=== PATIENT | male | born 1960 | race Caucasian/White ===

== ENCOUNTER 2017-07-02 16:35 | Inpatient (IN) | payer MEDICARE, MEDICAID ==
[~2017-07-02] VITALS: Ht 175.3 cm; Wt 86.2 kg
--- NOTE | 2017-07-02 16:49 | Emergency Room Report ---
History of Present Illness General Chief Complaint: Overdose Source: Patient, EMS Present Illness HPI The patient presents one half hour after taking an overdose of his antihypertensive medications in an attempt to kill himself. He is frustrated that he doesn't have more relief from his psychiatrist. He took 5 lisinopril 20 mg tablets and 6 atenolol 25 mg tablets. Complaining of chest discomfort with palpitations and feeling his heart racing. Aside from this, denies any pain. He denied pain to RN (0/10). He was last hospitalized when he tried to take his life was 2 years ago. He's been staying with a friend recently. He denies any alcohol or drugs. He has hepatitis C and denies HIV. He's been treated for depression in the past. He's been taking medication to treat this but feels it is ineffective. No fevers, cough, sore throat, NVD, rashes, joint pain, headache, dysuria. Allergies: Coded Allergies: CODEINE (Verified Adverse Reaction, Intermediate, 10/29/15) Patient History Past Medical History: see triage record Social History: Reports: smoking, Denies: alcohol use, drug use - see tox ( patient was not truthful) Social History Narrative Lives with friend Reviewed Nursing Documentation: PMH: Agreed, PSxH: Agreed Nursing Documentation-PMH Past Medical History: No History, Except For Hx Hypertension: Yes History Of Psychiatric Problem: Yes - Depression Review of Systems All Other Systems: negative except mentioned in HPI Physical Exam Vital Signs Date Time Temp Pulse Resp B/P (MAP) Pulse Ox O2 Delivery O2 Flow Rate FiO2 07/02/17 16:27 97.3 129 24 142/94 98 Room Air Sp02 EP Interpretation: reviewed, normal General Appearance: well appearing, no apparent distress, GCS 15 Head: normocephalic Eyes: bilateral eye PERRL, bilateral eye Scleral Injection ENT: moist mucus membranes Neck: supple Respiratory: lungs clear, normal breath sounds Cardiovascular #1: no edema, no murmur, tachycardia Cardiovascular #2: 2+ radial (R) Gastrointestinal: normal inspection, normal bowel sounds, non tender, no mass, non-distended, scaphoid Musculoskeletal: back normal, gait/station normal, normal range of motion Neurologic: alert, oriented x3, grossly normal Psychiatric: depressed affect, anxious Suicide Risk Assessment: Suicidal Ideation: Yes Had intent to initiate attempt: Yes Pt's plan for suicide attempt: Yes Has means to complete attempt: Yes Skin: normal inspection, warm/dry Medical Decision Making Diagnostic Impression: Primary Impression: Drug overdose Qualified Codes: T50.902A - Poisoning by unspecified drugs, medicaments and biological substances, intentional self-harm, initial encounter Additional Impressions: Suicide attempt Overdose of antihypertensive agent Qualified Codes: T46.5X2A - Poisoning by other antihypertensive drugs, intentional self-harm, initial encounter Right upper lobe pneumonia Qualified Codes: J18.1 - Lobar pneumonia, unspecified organism Renal insufficiency ER Course Patient presents with anti-hypertensive medication overdose in attempt to kill himself. DDx: suicide gesture, exacerbation of major depression, risk of hypotension, psychosis amongst others. Emergent evaluation and treatment indicated. Discussed with poison control who state needs to be observed with director of cardiac rehabilitation for at least 6 hours. Consider charcoal if suspect other agents. Recommend not to pump stomach. Patient high risk and needs 1-1 supervision. Evaluation with EKG, CXR, labs. Treatment with IV hydration and will not give charcoal. Improved with treatment. HR better. Leukocytosis and RUL infiltrate - BC and antibiotics ordered. Renal insufficiency. Tox screen + for cocaine. Dr. Elizondo contacted and will see patient. Contacted Dr. Turner for admission. Patient observed for > 6 hours (per poison control) without hypotension. Stable to be downgraded to medical floor with sitter. Laboratory Tests Test 07/02/17 16:40 07/02/17 18:35 White Blood Count 21.3 K/UL (4.8-10.8) H Red Blood Count 5.49 M/UL (4.70-6.10) Hemoglobin 16.3 G/DL (14.2-18.0) Hematocrit 49.4 % (42.0-52.0) Mean Corpuscular Volume 90 FL (80-99) Mean Corpuscular Hemoglobin 29.7 PG (27.0-31.0) Mean Corpuscular Hemoglobin Concent 33.1 G/DL (32.0-36.0) Red Cell Distribution Width 13.0 % (11.6-14.8) Platelet Count 336 K/UL (150-450) Mean Platelet Volume 6.1 FL (6.5-10.1) L Neutrophils (%) (Auto) % (45.0-75.0) Lymphocytes (%) (Auto) % (20.0-45.0) Monocytes (%) (Auto) % (1.0-10.0) Eosinophils (%) (Auto) % (0.0-3.0) Basophils (%) (Auto) % (0.0-2.0) Differential Total Cells Counted 100 Neutrophils % (Manual) 69 % (45-75) Lymphocytes % (Manual) 26 % (20-45) Monocytes % (Manual) 4 % (1-10) Eosinophils % (Manual) 1 % (0-3) Basophils % (Manual) 0 % (0-2) Band Neutrophils 0 % (0-8) Platelet Estimate Adequate Platelet Morphology Normal Red Blood Cell Morphology Normal Sodium Level 137 MMOL/L (136-145) Potassium Level 3.6 MMOL/L (3.5-5.1) Chloride Level 106 MMOL/L (98-107) Carbon Dioxide Level 17 MMOL/L (21-32) L Anion Gap 14 mmol/L (5-15) Blood Urea Nitrogen 20 mg/dL (7-18) H Creatinine 1.8 MG/DL (0.55-1.30) H Estimate Glomerular Filtration Rate 39.2 mL/min (>60) Glucose Level 172 MG/DL (74-106) H Lactic Acid Level 1.40 mmol/L (0.66-2.22) Calcium Level 9.5 MG/DL (8.5-10.1) Total Bilirubin 0.6 MG/DL (0.2-1.0) Aspartate Amino Transferase (AST) 30 U/L (15-37) Alanine Aminotransferase (ALT) 36 U/L (12-78) Alkaline Phosphatase 81 U/L (46-116) Total Creatine Kinase 105 U/L (26-308) Troponin I 0.013 ng/mL (0.000-0.056) Total Protein 8.3 G/DL (6.4-8.2) H Albumin 4.2 G/DL (3.4-5.0) Globulin 4.1 g/dL Albumin/Globulin Ratio 1.0 (1.0-2.7) Thyroid Stimulating Hormone (TSH) 2.981 uiU/mL (0.360-3.740) Salicylates Level 3.9 ug/mL (2.8-20) Acetaminophen Level < 10 MCG/ML (10-30) L Serum Alcohol < 3 mg/dL Urine Color Yellow Urine Appearance Clear Urine pH 5 (4.5-8.0) Urine Specific [place] 1.010 (1.005-1.035) Urine Protein Negative (NEGATIVE) Urine Glucose (UA) Negative (NEGATIVE) Urine Ketones Negative (NEGATIVE) Urine Occult Blood Negative (NEGATIVE) Urine Nitrite Negative (NEGATIVE) Urine Bilirubin Negative (NEGATIVE) Urine Urobilinogen 1 MG/DL (0.0-1.0) H Urine Leukocyte Esterase Negative (NEGATIVE) Urine Opiates Screen Negative (NEGATIVE) Urine Barbiturates Screen Negative (NEGATIVE) Phencyclidine (PCP) Screen Negative (NEGATIVE) Urine Amphetamines Screen Positive (NEGATIVE) H Urine Benzodiazepines Screen Negative (NEGATIVE) Urine Cocaine Screen Positive (NEGATIVE) H Urine Marijuana (THC) Screen Positive (NEGATIVE) H EKG Diagnostic Results Rate: tachycardiac ST Segments: no acute changes Rhythm Strip Diag. Results EP Interpretation: yes Rhythm: no PVC's, no ectopy, other - ST Chest X-Ray Diagnostic Results Chest X-Ray Diagnostic Results : Chest X-Ray Ordered: Yes # of Views/Limited/Complete: 1 View Indication: Other EP Interpretation: Yes Interpretation: no effusion, no pneumothorax, other - RUL infiltrate Impression: Other Electronically Signed by: Aaron España MD Last Vital Signs Date Time Temp Pulse Resp B/P (MAP) Pulse Ox O2 Delivery O2 Flow Rate FiO2 07/03/17 00:45 98.0 99 14 126/75 100 Room Air Status: improved Disposition: ADMITTED INPATIENT Condition: Serious Scripts Cefdinir (CEFDINIR) 300 Mg Capsule 300 MG PO BID for 5 Days, #10 CAP Prov: Marito Luther M.D. 07/04/17 Azithromycin (AZITHROMYCIN) 500 Mg Tablet 500 MG ORAL DAILY for 3 Days, #3 TAB Prov: Marito Luther M.D. 07/04/17 Aaron España M.D. Jul 02, 2017 16:49
[2017-07-02 17:26] VITALS: BP 132/85
[2017-07-02 17:26] LABS: HEMATOCRIT 49.4 % (42.0-52.0); HEMOGLOBIN 16.3 G/DL (14.2-18.0); MEAN CORPUSCULAR VOLUME 90 FL (80-99); PLATELET COUNT 336 K/UL (150-450); RED BLOOD COUNT 5.49 M/UL (4.70-6.10); WHITE BLOOD COUNT 21.3 K/UL (4.8-10.8)
[2017-07-02 17:31] LABS: ALANINE AMINOTRANSFERASE 36 U/L (12-78); ALBUMIN 4.2 G/DL (3.4-5.0); ALKALINE PHOSPHATASE 81 U/L (46-116); ANION GAP 14 mmol/L (5-15); ASPARTATE AMINO TRANSFERASE 30 U/L (15-37); BILIRUBIN,TOTAL 0.6 MG/DL (0.2-1.0); BLOOD UREA NITROGEN 20 mg/dL (7-18); CALCIUM 9.5 MG/DL (8.5-10.1); CARBON DIOXIDE 17 MMOL/L (21-32); CHLORIDE 106 MMOL/L (98-107); CREATININE 1.8 MG/DL (0.55-1.30); POTASSIUM 3.6 MMOL/L (3.5-5.1); SODIUM 137 MMOL/L (136-145)
[2017-07-02 17:41] LABS: CREATINE KINASE 105 U/L (26-308)
[2017-07-02] MEDS ORDERED: Cefepime HCl 1 GM in D5W 55 ML IVPB ONE (18:15)
[2017-07-02] MEDS ORDERED: Cefepime 1gm vial ONE (18:16)
[2017-07-02 19:06] LABS: APPEARANCE,URINE CLEAR; BILIRUBIN, URINE NEGATIVE (NEGATIVE); GLUCOSE, URINE (UA) NEGATIVE (NEGATIVE); KETONES,URINE NEGATIVE (NEGATIVE); LEUKOCYTE ESTERASE ,URINE NEGATIVE (NEGATIVE); NITRITE,URINE NEGATIVE (NEGATIVE); PH,URINE 5 (4.5-8.0); PROTEIN,URINE NEGATIVE (NEGATIVE); UROBILINOGEN,URINE 1 MG/DL (0.0-1.0)
[2017-07-02 19:15] LABS: COLOR,URINE YELLOW
[2017-07-02 19:20] VITALS: BP 126/80
[2017-07-02] MEDS ORDERED: FENOFIBRATE54 MG ORAL (20:05)
[2017-07-02] MEDS ORDERED: LISINOPRIL20 MG ORAL (20:05)
[2017-07-02] MEDS ORDERED: CHLORPROMAZINE50 MG PO (20:05)
[2017-07-02] MEDS ORDERED: TERAZOSIN HCL1 MG ORAL (20:05)
[2017-07-02] MEDS ORDERED: RISPERIDONE3 MG ORAL (20:05)
[2017-07-02] MEDS ORDERED: KENALOG 0.025%15 GM TOPIC (20:05)
[2017-07-02] MEDS ORDERED: METOPROLOL TART25 MG ORAL (20:05)
[2017-07-02] MEDS ORDERED: DEXILANT30 MG ORAL (20:05)
[2017-07-02] MEDS ORDERED: RISPERDAL2 MG ORAL (20:05)
[2017-07-02] MEDS ORDERED: CLOPIDOGREL75 MG ORAL (20:05)
[2017-07-02] MEDS ORDERED: TOPIRAMATE100 MG ORAL (20:05)
[2017-07-02] MEDS ORDERED: ASPIR 8181 MG ORAL (20:05)
[2017-07-02] MEDS ORDERED: ATORVASTATIN CA80 MG ORAL (20:05)
[2017-07-02] MEDS ORDERED: HYDROXYZINE HCL50 M1 PO (20:05)
[2017-07-02] MEDS ORDERED: SERTRALINE HCL100 MG PO (20:05)
[2017-07-02] MEDS ORDERED: RISPERIDONE4 MG ORAL (20:05)
[2017-07-02] MEDS ORDERED: HYTRIN2 MG PO (20:05)
[2017-07-02 20:25] VITALS: BP 126/82
[2017-07-02 21:25] VITALS: BP 124/78
[2017-07-02 23:00] VITALS: BP 120/74
[2017-07-03] VITALS (7 sets, daily range): BP systolic 126–147; BP diastolic 75–97
[2017-07-03] MEDS: Aspirin Baby 81mg ORAL SCH (08:07)
[2017-07-03 09:46] LABS: BASOPHILS % (AUTO) 0.6 % (0.0-2.0); HEMATOCRIT 41.9 % (42.0-52.0); HEMOGLOBIN 13.7 G/DL (14.2-18.0); LYMPHOCYTES % (AUTO) 42.5 % (20.0-45.0); MEAN CORPUSCULAR VOLUME 91 FL (80-99); MONOCYTES % (AUTO) 5.3 % (1.0-10.0); NEUTROPHILS % (AUTO) 48.6 % (45.0-75.0); PLATELET COUNT 253 K/UL (150-450); RED BLOOD COUNT 4.62 M/UL (4.70-6.10); RED CELL DISTRIBUTION WIDTH 12.7 % (11.6-14.8)
[2017-07-03 09:48] LABS: ANION GAP 11 mmol/L (5-15); BLOOD UREA NITROGEN 18 mg/dL (7-18); CALCIUM 8.9 MG/DL (8.5-10.1); CARBON DIOXIDE 21 MMOL/L (21-32); CHLORIDE 112 MMOL/L (98-107); CREATININE 1.2 MG/DL (0.55-1.30); POTASSIUM 3.6 MMOL/L (3.5-5.1); SODIUM 143 MMOL/L (136-145)
--- NOTE | 2017-07-03 11:09 | Diagnostic Imaging Report ---
Indication: Cough Technique: CHEST 1 VIEW Comparison: None. Findings: The heart is enlarged. The lungs are clear. No pleural fluid. The bones are unremarkable. The patient has taken a poor inspiration. Impression: Cardiomegaly. Otherwise normal.
--- NOTE | 2017-07-03 11:41 | History and Physical ---
History of Present Illness General Date patient seen: Jul 03, 2017 Reason for Hospitalization: Overdose Present Illness HPI 57 year old male w/ PMHx of CAD s/p prior cardiac stents on DAPT, HTN, HLD, GERD , Depression w/ prior SI & attempts and Schizophrenia. Pt states he has been more depressed lately and has been having more auditory hallucinations. He took an overdose of his BP medication (ACEi & BB) and presented to the ED hypotensive and tachycardic. Pt received IVF w/ improvement in hemodynamics. He was placed on a 5150 hold and Psychiatry was notified. Pt did not require any interventions for BB overdose. He has remained HDS overnight with a 1:1 sitter. In the ED pt was also noted to have a productive cough w/ PNA identified on CXR. He was started on cefepime and levofloxacin in the ED. Pt reports he has had a productive cough for the last 2 months and has had fever and chills over the last week. Currently he is living [address] Allergies: Coded Allergies: CODEINE (Verified Adverse Reaction, Intermediate, 10/29/15) Medication History Scheduled Aspirin* (Aspir 81*), 81 MG ORAL DAILY, (Reported) Atorvastatin Calcium* (Lipitor*), 80 MG ORAL BEDTIME, (Reported) Chlorpromazine Hcl (Chlorpromazine Hcl), 50 MG PO DAILY, (Reported) Chlorpromazine Hcl (Chlorpromazine Hcl), 100 MG PO DAILY, (Reported) Clopidogrel* (Clopidogrel*), 75 MG ORAL DAILY, (Reported) Dexlansoprazole (Dexilant), 30 MG ORAL DAILY, (Reported) Fenofibrate (Fenofibrate), 54 MG ORAL DAILY, (Reported) Hydroxyzine Hcl (Hydroxyzine Hcl), 50 MG PO QID, (Reported) Lisinopril (Lisinopril*), 20 MG ORAL DAILY, (Reported) Metoprolol Tartrate* (Metoprolol Tartrate*), 25 MG ORAL EVERY 12 HOURS, ( Reported) Risperidone (Risperidone), 3 MG ORAL BID, (Reported) Risperidone (Risperidone), 4 MG ORAL BID, (Reported) Risperidone* (Risperdal*), 2 MG ORAL BID, (Reported) Sertraline Hcl* (Zoloft*), 100 MG PO BID, (Reported) Terazosin HCl (Terazosin HCl), 2 MG PO QHS, (Reported) Terazosin Hcl* (Hytrin*), 1 MG ORAL BEDTIME, (Reported) Topiramate* (Topamax*), 100 MG ORAL BEDTIME, (Reported) Triamcinolone Acet (Triamcinolone Acetonide), 15 GM TOPIC BID, (Reported) Patient History History Provided By: Patient, Medical Record Healthcare decision maker Resuscitation status Full Code Advanced Directive on File Social History Social History: (1) Homeless Review of Systems ROS Narrative CONSTITUTIONAL: + fever, chills, weakness or fatigue. HEENT: Eyes: No visual loss, blurred vision, double vision or yellow sclerae. Ears, Nose, Throat: No hearing loss, sneezing, congestion, runny nose or sore throat. SKIN: No rash or itching. CARDIOVASCULAR: No chest pain, chest pressure or chest discomfort. No palpitations or edema. RESPIRATORY: + shortness of breath, cough & sputum. GASTROINTESTINAL: No anorexia, nausea, vomiting or diarrhea. No abdominal pain or blood. NEUROLOGICAL: No headache, dizziness, syncope, paralysis, ataxia, numbness or tingling in the extremities. No change in bowel or bladder control. MUSCULOSKELETAL: No muscle, back pain. No joint pain or stiffness. HEMATOLOGIC: No anemia, bleeding or bruising. LYMPHATICS: No enlarged nodes. No history of splenectomy. PSYCHIATRIC: + depression w/ SI and plan ENDOCRINOLOGIC: No reports of sweating, cold or heat intolerance. No polyuria or polydipsia. ALLERGIES: No history of asthma, hives, eczema or rhinitis. Physical Exam Physical Exam Narrative General: Ill appearing, in no acute distress, cooperative and alert, flat affect Head: Normocephalic, without obvious abnormality, atraumatic. Eyes: Conjunctivae/corneas clear. PERRL, EOMs intact. No scleral icterus present Throat: Lips, mucosa, and tongue normal. Teeth and gums normal. Neck: No carotid bruits bilaterally, no jugular venous distention, no hepatojugular reflux, supple, symmetrical, trachea midline Lungs: Clear to auscultation bilaterally. + Diffuse rhonchi in post soliz Chest wall: No tenderness or deformity. Heart: Regular rate and rhythm, normal S1 and S2, No murmurs/gallops/rubs Abdomen: Soft, non-tender, non-distended, normoactive bowel sounds. No masses, or hepatosplenomegaly. Extremities: No clubbing, cyanosis, edema Pulses: 2+ and symmetric all extremities. Skin: No rashes, excoriations Neurologic: CNII-XII intact. Normal strength and sensation throughout. Last 24 Hour Vital Signs Date Time Temp Pulse Resp B/P (MAP) Pulse Ox O2 Delivery O2 Flow Rate FiO2 07/03/17 08:00 98.2 88 18 147/94 96 Room Air 07/03/17 07:42 98.2 88 18 147/94 96 Room Air 07/03/17 04:00 98.1 78 18 144/97 97 Room Air 07/03/17 00:45 98.0 99 14 126/75 100 Room Air 07/03/17 00:05 98.0 99 14 126/75 100 Room Air 07/02/17 23:00 98.2 102 13 120/74 99 Room Air 07/02/17 21:25 98.1 84 14 124/78 100 Room Air 07/02/17 20:25 97.8 88 14 126/82 99 Room Air 07/02/17 19:20 97.9 90 16 126/80 99 Room Air 07/02/17 17:26 105 14 132/85 98 Room Air 07/02/17 16:37 129 24 Room Air 07/02/17 16:27 97.3 129 24 142/94 98 Room Air Laboratory Tests Test 07/02/17 16:40 07/02/17 18:35 07/03/17 08:45 White Blood Count 21.3 K/UL (4.8-10.8) H 9.0 K/UL (4.8-10.8) # Red Blood Count 5.49 M/UL (4.70-6.10) 4.62 M/UL (4.70-6.10) L Hemoglobin 16.3 G/DL (14.2-18.0) 13.7 G/DL (14.2-18.0) L Hematocrit 49.4 % (42.0-52.0) 41.9 % (42.0-52.0) L Mean Corpuscular Volume 90 FL (80-99) 91 FL (80-99) Mean Corpuscular Hemoglobin 29.7 PG (27.0-31.0) 29.7 PG (27.0-31.0) Mean Corpuscular Hemoglobin Concent 33.1 G/DL (32.0-36.0) 32.8 G/DL (32.0-36.0) Red Cell Distribution Width 13.0 % (11.6-14.8) 12.7 % (11.6-14.8) Platelet Count 336 K/UL (150-450) 253 K/UL (150-450) Mean Platelet Volume 6.1 FL (6.5-10.1) L 5.9 FL (6.5-10.1) L Neutrophils (%) (Auto) % (45.0-75.0) 48.6 % (45.0-75.0) Lymphocytes (%) (Auto) % (20.0-45.0) 42.5 % (20.0-45.0) Monocytes (%) (Auto) % (1.0-10.0) 5.3 % (1.0-10.0) Eosinophils (%) (Auto) % (0.0-3.0) 3.0 % (0.0-3.0) Basophils (%) (Auto) % (0.0-2.0) 0.6 % (0.0-2.0) Differential Total Cells Counted 100 Neutrophils % (Manual) 69 % (45-75) Lymphocytes % (Manual) 26 % (20-45) Monocytes % (Manual) 4 % (1-10) Eosinophils % (Manual) 1 % (0-3) Basophils % (Manual) 0 % (0-2) Band Neutrophils 0 % (0-8) Platelet Estimate Adequate Platelet Morphology Normal Red Blood Cell Morphology Normal Sodium Level 137 MMOL/L (136-145) 143 MMOL/L (136-145) Potassium Level 3.6 MMOL/L (3.5-5.1) 3.6 MMOL/L (3.5-5.1) Chloride Level 106 MMOL/L (98-107) 112 MMOL/L (98-107) H Carbon Dioxide Level 17 MMOL/L (21-32) L 21 MMOL/L (21-32) Anion Gap 14 mmol/L (5-15) 11 mmol/L (5-15) Blood Urea Nitrogen 20 mg/dL (7-18) H 18 mg/dL (7-18) Creatinine 1.8 MG/DL (0.55-1.30) H 1.2 MG/DL (0.55-1.30) Estimat Glomerular Filtration Rate 39.2 mL/min (>60) > 60 mL/min (>60) Glucose Level 172 MG/DL (74-106) H 97 MG/DL (74-106) Lactic Acid Level 1.40 mmol/L (0.66-2.22) Calcium Level 9.5 MG/DL (8.5-10.1) 8.9 MG/DL (8.5-10.1) Total Bilirubin 0.6 MG/DL (0.2-1.0) Aspartate Amino Transf (AST/SGOT) 30 U/L (15-37) Alanine Aminotransferase (ALT/SGPT) 36 U/L (12-78) Alkaline Phosphatase 81 U/L (46-116) Total Creatine Kinase 105 U/L (26-308) Troponin I 0.013 ng/mL (0.000-0.056) Total Protein 8.3 G/DL (6.4-8.2) H Albumin 4.2 G/DL (3.4-5.0) Globulin 4.1 g/dL Albumin/Globulin Ratio 1.0 (1.0-2.7) Thyroid Stimulating Hormone (TSH) 2.981 uiU/mL (0.360-3.740) Salicylates Level 3.9 ug/mL (2.8-20) Acetaminophen Level < 10 MCG/ML (10-30) L Serum Alcohol < 3 mg/dL Urine Color Yellow Urine Appearance Clear Urine pH 5 (4.5-8.0) Urine Specific [place] 1.010 (1.005-1.035) Urine Protein Negative (NEGATIVE) Urine Glucose (UA) Negative (NEGATIVE) Urine Ketones Negative (NEGATIVE) Urine Occult Blood Negative (NEGATIVE) Urine Nitrite Negative (NEGATIVE) Urine Bilirubin Negative (NEGATIVE) Urine Urobilinogen 1 MG/DL (0.0-1.0) H Urine Leukocyte Esterase Negative (NEGATIVE) Urine Opiates Screen Negative (NEGATIVE) Urine Barbiturates Screen Negative (NEGATIVE) Phencyclidine (PCP) Screen Negative (NEGATIVE) Urine Amphetamines Screen Positive (NEGATIVE) H Urine Benzodiazepines Screen Negative (NEGATIVE) Urine Cocaine Screen Positive (NEGATIVE) H Urine Marijuana (THC) Screen Positive (NEGATIVE) H Height (Feet): 5 Height (Inches): 9.00 Weight (Pounds): 190 Medications Current Medications Medications (Trade) Dose Ordered Sig/Mauricio Route PRN Reason Start Time Stop Time Status Last Admin Dose Admin Aspirin (ASA) 81 mg DAILY ORAL 07/03/17 09:00 08/02/17 08:59 07/03/17 08:07 Clopidogrel Bisulfate (Plavix) 75 mg DAILY ORAL 07/03/17 09:00 08/02/17 08:59 07/03/17 08:07 Assessment/Plan Status: stable Assessment/Plan Depression w/ suicide attempt Suicidal ideation - active Drug Overdose Schizophrenia Pneumonia Renal insufficiency Poly substance abuse (amphetamine, cocaine, MJ pos drug screen) CAD s/p prior Stents on DAPT HTN HLD GERD - admit to in pt - 5150 hold - 1:1 Sitter - psychiatry consulted by ED, awaiting recs - transfer to psych facility given active SI once medically stable - narrow abx to ceftriaxone and azithromycin, monitor clinical response - sputum culture - trend Chem and CBC - renal us & FENA - c/w asa & plavix - re start home MTP in am - hold lisinopril given real fxn - avoid nephro toxic meds - c/w other home psych meds - awaiting psych recs for imput on psych regimen - dispo planning DVT PPx: Heparin sq FULL CODE Dispo: psych facility once medically stable Expected LOS: 2-3 days Time of note may not reflect time of clinical encounter I spent 69 min on this case and 27 min were dedicated to counseling and care coordination Jason Turner MD Jul 03, 2017 11:41
[2017-07-03] MEDS: D5 1/2NS 1,000 ML IV SCH (15:36)
[2017-07-03] MEDS ORDERED: Potassium Chloride 10 MEQ in D5 1/2NS 1,000 ML IV SCH (16:00)
[2017-07-03] MEDS: Sertraline 100mg tab ORAL SCH (17:54)
[2017-07-03] MEDS ORDERED: Azithromycin 500 MG in D5W 275 ML IV SCH (20:00)
[2017-07-03] MEDS: Metoprolol 25mg tab ORAL SCH (20:54)
[2017-07-03] MEDS ORDERED: cefTRIAXone 1gm/D5W 55ml IVPB SCH ×2 (21:00)
[2017-07-03] MEDS ORDERED: Terazosin 2mg cap ORAL SCH (21:00)
[2017-07-03] MEDS ORDERED: Atorvastatin 80mg tab ORAL SCH (21:00)
[2017-07-03] MEDS ORDERED: Topiramate 100mg tab ORAL SCH (21:00)
[2017-07-04] MEDS: D5 1/2NS 1,000 ML IV SCH (03:34)
[2017-07-04 07:56] LABS: BASOPHILS % (AUTO) 0.5 % (0.0-2.0); EOSINOPHILS % (AUTO) 1.7 % (0.0-3.0); HEMATOCRIT 37.8 % (42.0-52.0); HEMOGLOBIN 13.3 G/DL (14.2-18.0); LYMPHOCYTES % (AUTO) 31.3 % (20.0-45.0); MEAN CORPUSCULAR VOLUME 90 FL (80-99); MONOCYTES % (AUTO) 5.1 % (1.0-10.0); NEUTROPHILS % (AUTO) 61.5 % (45.0-75.0); PLATELET COUNT 244 K/UL (150-450); RED BLOOD COUNT 4.21 M/UL (4.70-6.10); RED CELL DISTRIBUTION WIDTH 12.4 % (11.6-14.8); WHITE BLOOD COUNT 13.1 K/UL (4.8-10.8)
[2017-07-04 08:00] VITALS: BP 135/90
[2017-07-04] MEDS: Aspirin Baby 81mg ORAL SCH (08:29)
[2017-07-04] MEDS: Metoprolol 25mg tab ORAL SCH (08:29)
[2017-07-04] MEDS: Sertraline 100mg tab ORAL SCH ×2 (08:29→17:02)
[2017-07-04 08:53] LABS: ANION GAP 13 mmol/L (5-15); BLOOD UREA NITROGEN 19 mg/dL (7-18); CALCIUM 8.6 MG/DL (8.5-10.1); CARBON DIOXIDE 17 MMOL/L (21-32); CHLORIDE 111 MMOL/L (98-107); CREATININE 1.1 MG/DL (0.55-1.30); POTASSIUM 3.4 MMOL/L (3.5-5.1); SODIUM 141 MMOL/L (136-145)
[2017-07-04] MEDS ORDERED: Lisinopril 20mg tab ORAL SCH (09:00)
[2017-07-04 11:40] VITALS: BP 135/95
--- NOTE | 2017-07-04 14:29 | Diagnostic Imaging Report ---
Indication:Elevated Bun and Creatinine. Technique: Grayscale and duplex Doppler imaging of the kidneys performed. Comparison: None Findings: The urinary bladder is markedly distended. There is left hydronephrosis. Further evaluation is recommended. IVC is unremarkable in appearance. The right kidney is 14.8 CM. Left kidney is 12.4 CM. Impression: Left hydronephrosis. Further evaluation is recommended.
--- NOTE | 2017-07-04 15:19 | General Progress Note ---
Subjective Date patient seen: Jul 04, 2017 Time patient seen: 15:19 Allergies: Coded Allergies: CODEINE (Verified Adverse Reaction, Intermediate, 10/29/15) Objective Last 24 Hour Vital Signs Date Time Temp Pulse Resp B/P (MAP) Pulse Ox O2 Delivery O2 Flow Rate FiO2 07/04/17 11:40 97.8 88 18 135/95 96 Room Air 07/04/17 08:32 135/90 07/04/17 08:29 84 135/90 07/04/17 08:00 98.8 84 18 135/90 98 Room Air 07/03/17 20:54 97 139/92 07/03/17 20:00 97.0 97 18 139/92 96 Room Air 07/03/17 16:00 98.1 92 19 146/95 96 Room Air Intake and Output 07/04/17 07/05/17 19:00 07:00 Intake Total 525 ml Output Total 1 ml Balance 524 ml IV Total 525 ml Output Urine Total 1 ml Laboratory Tests 07/03/17 19:17: Urine Random Sodium 175H, Urine Creatinine 132.5H 07/04/17 05:30: White Blood Count 13.1H, Red Blood Count 4.21L, Hemoglobin 13.3L, Hematocrit 37.8L, Mean Corpuscular Volume 90, Mean Corpuscular Hemoglobin 31.5H, Mean Corpuscular Hemoglobin Concent 35.1, Red Cell Distribution Width 12.4, Platelet Count 244, Mean Platelet Volume 5.9L, Neutrophils (%) (Auto) 61.5, Lymphocytes ( %) (Auto) 31.3, Monocytes (%) (Auto) 5.1, Eosinophils (%) (Auto) 1.7, Basophils (%) (Auto) 0.5, Sodium Level 141, Potassium Level 3.4L, Chloride Level 111H, Carbon Dioxide Level 17L, Anion Gap 13, Blood Urea Nitrogen 19H, Creatinine 1.1 , Estimat Glomerular Filtration Rate > 60, Glucose Level 107H, Calcium Level 8.6 Height (Feet): 5 Height (Inches): 9.00 Weight (Pounds): 190 Marito Luther M.D. Jul 04, 2017 15:19
[2017-07-04] MEDS ORDERED: Tubing IV Secondary IV ONE (15:47)
[2017-07-04] MEDS ORDERED: D5 1/2NS 1000ml IV ONE (15:47)
[2017-07-04 16:00] VITALS: BP 116/77
[2017-07-04] MEDS ORDERED: AZITHROMYCIN500 MG ORAL (16:18)
[2017-07-04] MEDS ORDERED: CEFDINIR300 MG PO (16:23)
--- NOTE | 2017-07-04 20:20 | Cardiology Report ---
APPROVED REPORT EKG Measurement Heart [id number] [place] 150P60 [id number] Sinus tachycardia Otherwise normal ECG
--- NOTE | 2017-07-04 20:20 | Cardiology Report ---
APPROVED REPORT EKG Measurement Heart [id number] CT 150P60 [id number] Sinus tachycardia Otherwise normal ECG
--- NOTE | 2017-07-04 20:20 | Cardiology Report ---
APPROVED REPORT EKG Measurement Heart [id number] [place] 150P60 [id number] Sinus tachycardia Otherwise normal ECG
--- NOTE | 2017-07-04 23:57 | General Progress Note ---
Assessment/Plan Status: unchanged Assessment/Plan schizophrenia mdd drug use -transfer to psych -vol -imminent dts Subjective Date patient seen: Jul 03, 2017 Neurologic/Psychiatric: Reports: anxiety, depressed, emotional problems Allergies: Coded Allergies: CODEINE (Verified Adverse Reaction, Intermediate, 10/29/15) Objective Last 24 Hour Vital Signs Date Time Temp Pulse Resp B/P (MAP) Pulse Ox O2 Delivery O2 Flow Rate FiO2 07/04/17 16:00 97.5 71 18 116/77 97 Room Air 07/04/17 11:40 97.8 88 18 135/95 96 Room Air 07/04/17 08:32 135/90 07/04/17 08:29 84 135/90 07/04/17 08:00 98.8 84 18 135/90 98 Room Air Intake and Output 07/04/17 07/05/17 19:00 07:00 Intake Total 525 ml Output Total 1 ml Balance 524 ml IV Total 525 ml Output Urine Total 1 ml # Voids 2 Laboratory Tests 07/04/17 05:30: White Blood Count 13.1H, Red Blood Count 4.21L, Hemoglobin 13.3L, Hematocrit 37.8L, Mean Corpuscular Volume 90, Mean Corpuscular Hemoglobin 31.5H, Mean Corpuscular Hemoglobin Concent 35.1, Red Cell Distribution Width 12.4, Platelet Count 244, Mean Platelet Volume 5.9L, Neutrophils (%) (Auto) 61.5, Lymphocytes ( %) (Auto) 31.3, Monocytes (%) (Auto) 5.1, Eosinophils (%) (Auto) 1.7, Basophils (%) (Auto) 0.5, Sodium Level 141, Potassium Level 3.4L, Chloride Level 111H, Carbon Dioxide Level 17L, Anion Gap 13, Blood Urea Nitrogen 19H, Creatinine 1.1 , Estimat Glomerular Filtration Rate > 60, Glucose Level 107H, Calcium Level 8.6 Height (Feet): 5 Height (Inches): 9.00 Weight (Pounds): 190 General Appearance: no apparent distress, alert Neurologic: alert, oriented x 3, responsive, depressed affect Katlin Elizondo M.D. Jul 04, 2017 23:57
--- NOTE | 2017-07-04 23:59 | Consultation ---
History of Present Illness General Date patient seen: Jul 02, 2017 Chief Complaint: Overdose Present Illness HPI 57 year old male w/ PMHx of CAD s/p prior cardiac stents on DAPT, HTN, HLD, GERD , Depression w/ prior SI & attempts and Schizophrenia. Pt states he has been more depressed lately and has been having more auditory hallucinations. He took an overdose of his BP medication (ACEi & BB) and presented to the ED hypotensive and tachycardic. the pt is suicidal and has plan to end his life. Allergies: Coded Allergies: CODEINE (Verified Adverse Reaction, Intermediate, 10/29/15) Medication History Scheduled Aspirin* (Aspir 81*), 81 MG ORAL DAILY, (Reported) Atorvastatin Calcium* (Lipitor*), 80 MG ORAL BEDTIME, (Reported) Azithromycin (Azithromycin), 500 MG ORAL DAILY Cefdinir (Cefdinir), 300 MG PO BID Chlorpromazine Hcl (Chlorpromazine Hcl), 50 MG PO DAILY, (Reported) Chlorpromazine Hcl (Chlorpromazine Hcl), 100 MG PO DAILY, (Reported) Clopidogrel* (Clopidogrel*), 75 MG ORAL DAILY, (Reported) Dexlansoprazole (Dexilant), 30 MG ORAL DAILY, (Reported) Fenofibrate (Fenofibrate), 54 MG ORAL DAILY, (Reported) Hydroxyzine Hcl (Hydroxyzine Hcl), 50 MG PO QID, (Reported) Lisinopril (Lisinopril*), 20 MG ORAL DAILY, (Reported) Metoprolol Tartrate* (Metoprolol Tartrate*), 25 MG ORAL EVERY 12 HOURS, ( Reported) Risperidone* (Risperdal*), 2 MG ORAL BID, (Reported) Sertraline Hcl* (Zoloft*), 100 MG PO BID, (Reported) Terazosin HCl (Terazosin HCl), 2 MG PO QHS, (Reported) Topiramate* (Topamax*), 100 MG ORAL BEDTIME, (Reported) Triamcinolone Acet (Triamcinolone Acetonide), 15 GM TOPIC BID, (Reported) Discontinued Medications Risperidone (Risperidone), 3 MG ORAL BID, (Reported) Discontinued Reason: Medication dose changed Risperidone (Risperidone), 4 MG ORAL BID, (Reported) Discontinued Reason: Medication dose changed Terazosin Hcl* (Hytrin*), 1 MG ORAL BEDTIME, (Reported) Discontinued Reason: Medication dose changed Patient History History Provided By: Patient, Medical Record, PMD Healthcare decision maker Resuscitation status Full Code Advanced Directive on File Review of Systems Psychiatric: Reports: prior hx, anxiety, depressed feelings, emotional problems , SI, hallucinations Physical Exam General Appearance: no apparent distress, alert, thin Neurologic: alert, oriented x 3, responsive, depressed affect Last 24 Hour Vital Signs Date Time Temp Pulse Resp B/P (MAP) Pulse Ox O2 Delivery O2 Flow Rate FiO2 07/04/17 16:00 97.5 71 18 116/77 97 Room Air 07/04/17 11:40 97.8 88 18 135/95 96 Room Air 07/04/17 08:32 135/90 07/04/17 08:29 84 135/90 07/04/17 08:00 98.8 84 18 135/90 98 Room Air Intake and Output 07/04/17 07/05/17 19:00 07:00 Intake Total 525 ml Output Total 1 ml Balance 524 ml IV Total 525 ml Output Urine Total 1 ml # Voids 2 Laboratory Tests Test 07/04/17 05:30 White Blood Count 13.1 K/UL (4.8-10.8) H Red Blood Count 4.21 M/UL (4.70-6.10) L Hemoglobin 13.3 G/DL (14.2-18.0) L Hematocrit 37.8 % (42.0-52.0) L Mean Corpuscular Volume 90 FL (80-99) Mean Corpuscular Hemoglobin 31.5 PG (27.0-31.0) H Mean Corpuscular Hemoglobin Concent 35.1 G/DL (32.0-36.0) Red Cell Distribution Width 12.4 % (11.6-14.8) Platelet Count 244 K/UL (150-450) Mean Platelet Volume 5.9 FL (6.5-10.1) L Neutrophils (%) (Auto) 61.5 % (45.0-75.0) Lymphocytes (%) (Auto) 31.3 % (20.0-45.0) Monocytes (%) (Auto) 5.1 % (1.0-10.0) Eosinophils (%) (Auto) 1.7 % (0.0-3.0) Basophils (%) (Auto) 0.5 % (0.0-2.0) Sodium Level 141 MMOL/L (136-145) Potassium Level 3.4 MMOL/L (3.5-5.1) L Chloride Level 111 MMOL/L (98-107) H Carbon Dioxide Level 17 MMOL/L (21-32) L Anion Gap 13 mmol/L (5-15) Blood Urea Nitrogen 19 mg/dL (7-18) H Creatinine 1.1 MG/DL (0.55-1.30) Estimat Glomerular Filtration Rate > 60 mL/min (>60) Glucose Level 107 MG/DL (74-106) H Calcium Level 8.6 MG/DL (8.5-10.1) Height (Feet): 5 Height (Inches): 9.00 Weight (Pounds): 190 Assessment/Plan Status: stable Assessment/Plan schizoaffective d/o dts -cont to observe -transfer to Katlin Drummond M.D. Jul 04, 2017 23:59
--- NOTE | 2017-07-05 07:08 | Discharge Summary ---
Discharge Summary Hospital Course Date of Admission Jul 02, 2017 at 17:10 Date of Discharge Jul 04, 2017 at 20:15 Admitting Diagnosis overdose Reason for Hospitalization: Pneumonia, hypotension HPI 57 year old male w/ PMHx of CAD s/p prior cardiac stents on DAPT, HTN, HLD, GERD , Depression w/ prior SI & attempts and Schizophrenia. Pt states he has been more depressed lately and has been having more auditory hallucinations. He took an overdose of his BP medication (ACEi & BB) and presented to the ED hypotensive and tachycardic. In the ED pt was also noted to have a productive cough w/ PNA identified on CXR. He was started on cefepime and levofloxacin in the ED. Pt reports he has had a productive cough for the last 2 months and has had fever and chills over the last week. Currently he is living on [address]. Admits to smoking cigarettes. Consultations Psychiatry Hospital Course Pt was admitted and seen by psychiatry. Pt received IVF w/ improvement in hemodynamics. He was placed on a 5150 hold w/ 1:1 sitter and Psychiatry was notified. Pt did not require any interventions for beta-pavithra overdose. His BP meds were slowly resumed. He was also trested for pneumonia w/ IV antibiotics and transition to PO antibiotics on d/c. Psychiatry recommended transfer to inpatient psychiatry facility and pt voluntarily agreed to transfer. Discharge Medications New Medications: Azithromycin (Azithromycin) 500 Mg Tablet 500 MG ORAL DAILY for 3 Days, #3 TAB Cefdinir (Cefdinir) 300 Mg Capsule 300 MG PO BID for 5 Days, #10 CAP Continued Medications: Aspirin* (Aspir 81*) 81 Mg Tablet. 81 MG ORAL DAILY Atorvastatin Calcium* (Lipitor*) 80 Mg Tablet 80 MG ORAL BEDTIME Chlorpromazine Hcl (Chlorpromazine Hcl) 50 Mg Tablet 50 MG PO DAILY for 1 IN THE MORNING Chlorpromazine Hcl (Chlorpromazine Hcl) 50 Mg Tablet 100 MG PO DAILY for 2 AT BEDTIME, TAB Clopidogrel* (Clopidogrel*) 75 Mg Tablet 75 MG ORAL DAILY Dexlansoprazole (Dexilant) 30 Mg Cap. 30 MG ORAL DAILY Fenofibrate (Fenofibrate) 54 Mg Tablet 54 MG ORAL DAILY Lisinopril (Lisinopril*) 20 Mg Tablet 20 MG ORAL DAILY Metoprolol Tartrate* (Metoprolol Tartrate*) 25 Mg Tablet 25 MG ORAL EVERY 12 HOURS Risperidone* (Risperdal*) 2 Mg Tablet 2 MG ORAL BID Sertraline Hcl* (Zoloft*) 100 Mg Tablet 100 MG PO BID Terazosin HCl (Terazosin HCl) 2 Mg Capsule 2 MG PO QHS Topiramate* (Topamax*) 100 Mg Tablet 100 MG ORAL BEDTIME Triamcinolone Acet (Triamcinolone Acetonide) 15 Gm Cream..g. 15 GM TOPIC BID, GM Discontinued Medications: Risperidone (Risperidone) 3 Mg Tablet 3 MG ORAL BID Risperidone (Risperidone) 4 Mg Tablet 4 MG ORAL BID Terazosin Hcl* (Hytrin*) 1 Mg Capsule 1 MG ORAL BEDTIME Discharge Condition Upon Discharge: stable Discharge Disposition Patient was discharged to Psychiatric Facility ([id number]) Discharge Diagnoses: (1) Suicidal overdose (2) Hypotension (3) CAP (community acquired pneumonia) (4) Tobacco abuse (5) CAD S/P percutaneous coronary angioplasty (6) HTN (hypertension) (7) HLD (hyperlipidemia) (8) Schizo-affective psychosis Marito Luther M.D. Jul 05, 2017 07:08
== END 2017-07-04 20:15 | DRG 917 ==
LOC: EDBD 16:35 → EDBEDREQ 16:43 → EMR 17:06 → 3E 17:10 → EDBEDREQSVC 23:47 → EDBEDREQ 23:47
DX: T50.992A Poisoning by other drugs, medicaments and biological substances, intentional self-harm, initial encounter (principal); J18.9 Pneumonia, unspecified organism; N17.9 Acute kidney failure, unspecified; I95.2 Hypotension due to drugs; I25.10 Atherosclerotic heart disease of native coronary artery without angina pectoris; F19.10 Other psychoactive substance abuse, uncomplicated; I10 Essential (primary) hypertension; E78.5 Hyperlipidemia, unspecified; K21.9 Gastro-esophageal reflux disease without esophagitis; F32.9 Major depressive disorder, single episode, unspecified; Z95.5 Presence of coronary angioplasty implant and graft; F17.200 Nicotine dependence, unspecified, uncomplicated; F25.9 Schizoaffective disorder, unspecified; Z88.6 Allergy status to analgesic agent; Z59.0 Homelessness
CPT/HCPCS: 36415; 71010; 76775; 80048; 80053; 80307; 80329; 81003; 82550; 82570; 83605; 84300; 84443; 84484; 85007; 85025; 87040; 93005; 96361; 96374; 96375; 99284; J8499

== ENCOUNTER 2017-11-04 20:35 | Emergency (ER) | payer MEDICARE, MEDICAID ==
[~2017-11-04] VITALS: Ht 180.3 cm; Wt 74.8 kg
[~2017-11-04 20:35] MED LIST: ASPIR 8181 MG ORAL; ATORVASTATIN CA80 MG ORAL; AZITHROMYCIN500 MG ORAL; CEFDINIR300 MG PO; CHLORPROMAZINE50 MG PO; CLOPIDOGREL75 MG ORAL; DEXILANT30 MG ORAL; FENOFIBRATE54 MG ORAL; HYDROXYZINE HCL50 M1 PO; HYTRIN2 MG PO; KENALOG 0.025%15 GM TOPIC; LISINOPRIL20 MG ORAL; METOPROLOL TART25 MG ORAL; RISPERDAL2 MG ORAL; RISPERIDONE3 MG ORAL; RISPERIDONE4 MG ORAL; SERTRALINE HCL100 MG PO; TERAZOSIN HCL1 MG ORAL; TOPIRAMATE100 MG ORAL
[2017-11-04] MEDS ORDERED: OMEPRAZOLE10 M1 ORAL (20:45)
[2017-11-04] MEDS ORDERED: PROZAC10 MG ORAL (20:45)
[2017-11-04] MEDS ORDERED: ZOLOFT25 MG ORAL (20:45)
[2017-11-04] MEDS ORDERED: Haloperidol 5mg/ml Inj IM ONE (22:15)
--- NOTE | 2017-11-04 23:00 | Emergency Room Report ---
History of Present Illness General Chief Complaint: General Complaint Source: Patient, EMS Present Illness HPI 57-year-old male presents ED for evaluation. Brought in by EMS. States he is hearing voices. States he ran out of his psychiatric medications 2 days ago. States that he takes Risperdal. Denies suicidal or homicidal ideation. Denies drug use. No other aggravating or relieving factors. Denies any other associated symptoms Allergies: Coded Allergies: CODEINE (Verified Adverse Reaction, Intermediate, 10/29/15) Patient History Past Medical History: HTN, psych hx Past Surgical History: none Pertinent Family History: none Social History: Denies: smoking, alcohol use, drug use Reviewed Nursing Documentation: PMH: Agreed, PSxH: Agreed Nursing Documentation-PMH Past Medical History: No History, Except For Hx Cardiac Problems: Yes Hx Hypertension: Yes Hx Cancer: No Hx Gastrointestinal Problems: Yes - pancreatitis History Of Psychiatric Problem: Yes Hx Neurological Problems: No Review of Systems All Other Systems: negative except mentioned in HPI Physical Exam Vital Signs Date Time Temp Pulse Resp B/P (MAP) Pulse Ox O2 Delivery O2 Flow Rate FiO2 11/04/17 20:38 98.6 125 16 170/119 100 Room Air 98.6 Sp02 EP Interpretation: reviewed, normal General Appearance: no apparent distress, alert, GCS 15, non-toxic Head: normocephalic, atraumatic Eyes: bilateral eye normal inspection, bilateral eye PERRL ENT: hearing grossly normal, normal pharynx, no angioedema, normal voice Neck: full range of motion, supple/symm/no masses Respiratory: chest non-tender, lungs clear, normal breath sounds, speaking full sentences Cardiovascular #1: regular rate, rhythm, no edema Cardiovascular #2: 2+ carotid (R), 2+ carotid (L), 2+ radial (R), 2+ radial (L) , 2+ dorsalis pedis (R), 2+ dorsalis pedis (L) Gastrointestinal: normal bowel sounds, non tender, soft, non-distended, no guarding, no rebound Rectal: deferred Genitourinary: normal inspection, no CVA tenderness Musculoskeletal: back normal, gait/station normal, normal range of motion, non- tender Neurologic: alert, oriented x3, responsive, motor strength/tone normal, sensory intact, speech normal Psychiatric: depressed affect, anxious Reflexes: 3+ bicep (R), 3+ bicep (L), 3+ tricep (R), 3+ tricep (L), 3+ knee (R) , 3+ knee (L) Skin: normal color, no rash, warm/dry, well hydrated Lymphatic: no adenopathy Medical Decision Making Diagnostic Impression: Primary Impression: Schizo-affective psychosis Qualified Codes: F25.9 - Schizoaffective disorder, unspecified ER Course Hospital Course 57-year-old male presents ED hearing voices. Ran out of his psych meds Differential diagnoses include: Psychosis, EtOH, drug abuse Clinical course patient placed on stretcher. On commercial lines account manager. After initial history and physical ordered Risperdal Patient continues to complain of hearing voices. Given Haldol here. Allowed to sleep Patient observed overnight. Awake in AM. Feeling better. Wishes to be discharged i. I feel this is a highly complex case requiring extensive working including EKG/Rhythm strip, Xray/CT/US, Blood/urine lab work, repeat exams while in ED, and administration of strong opiates/narcotics for pain control, admission to hospital or close patient follow up. Diagnosis - Psychosis Stable and discharged to home with Rx Risperdal. Followup with PMD. Return to ED if symptoms recur or worsen Last Vital Signs Date Time Temp Pulse Resp B/P (MAP) Pulse Ox O2 Delivery O2 Flow Rate FiO2 11/04/17 20:38 98.6 125 16 170/119 100 Room Air 98.6 Status: improved Disposition: HOME, SELF-CARE Condition: Stable Scripts Risperidone* (RISPERDAL*) 1 Mg Tablet 3 MG PO BID for 30 Days, TAB Prov: VELMA PERRY M.D. 11/05/17 Referrals: NOT CHOSEN MONO/,REFERRING (PCP) VELMA PERRY M.D. Nov 04, 2017 23:00
[2017-11-05 05:45] VITALS: BP 149/99
[2017-11-05] MEDS ORDERED: RISPERDAL1 MG PO (06:04)
[2017-11-05 06:25] VITALS: BP 149/99
== END 2017-11-05 06:30 | disposition home or self-care (01) ==
LOC: EDBD 20:35 → EMR 22:22
DX: F25.9 Schizoaffective disorder, unspecified (principal); I10 Essential (primary) hypertension; Z88.6 Allergy status to analgesic agent
CPT/HCPCS: 96372; 99283; J1630

== ENCOUNTER 2018-01-28 04:23 | Emergency (ER) | payer MEDICARE, MEDICAID ==
[~2018-01-28] VITALS: Ht 177.8 cm; Wt 86.2 kg
[~2018-01-28 04:23] MED LIST changes: +OMEPRAZOLE10 M1 ORAL; +PROZAC10 MG ORAL; +RISPERDAL1 MG PO; +ZOLOFT25 MG ORAL
--- NOTE | 2018-01-28 04:32 | Emergency Room Report ---
History of Present Illness General Chief Complaint: Chest Pain Source: Patient, EMS Present Illness HPI Is a 57-year-old male with a history of CAD with 2 stents last year. He also smokes and use cocaine and methamphetamine. He presents with chest pain ongoing for last 2 hours. No fever or chills. No radiation. Pain is 10 out of 10. He called 911. EMS gave him nitroglycerin and aspirin which only helped a little bit. Similar symptom in the past. No exertional component. No diaphoresis. Allergies: Coded Allergies: CODEINE (Verified Adverse Reaction, Intermediate, 10/29/15) Patient History Past Medical History: see triage record, old chart reviewed Past Surgical History: other Pertinent Family History: none Social History: Reports: smoking, alcohol use, drug use Immunizations: other Reviewed Nursing Documentation: PMH: Agreed; PSxH: Agreed Nursing Documentation-PMH Hx Cardiac Problems: Yes - STENT X2 Hx Hypertension: Yes Hx Cancer: No Hx Gastrointestinal Problems: Yes - HEP C History Of Psychiatric Problem: Yes - SCHIZO Hx Neurological Problems: No Review of Systems Eye: Denies: eye pain, blurred vision ENT: Denies: ear pain, nose congestion, throat swelling Respiratory: Denies: cough, shortness of breath Cardiovascular: Reports: chest pain; Denies: palpitations Gastrointestinal: Denies: abdominal pain, diarrhea, nausea, vomiting Musculoskeletal: Denies: back pain, joint pain Skin: Denies: rash Neurological: Denies: headache, numbness Endocrine: Denies: increased thirst, increased urine Hematologic/Lymphatic: Denies: easy bruising All Other Systems: negative except mentioned in HPI Physical Exam Vital Signs Date Time Temp Pulse Resp B/P (MAP) Pulse Ox O2 Delivery O2 Flow Rate FiO2 01/28/18 04:13 98.2 121 18 165/111 95 Room Air 98.2 vitals with tachycardia and htn Sp02 EP Interpretation: reviewed, normal General Appearance: well appearing, no apparent distress, alert Head: normocephalic, atraumatic Eyes: bilateral eye PERRL, bilateral eye EOMI ENT: hearing grossly normal, normal pharynx Neck: full range of motion, supple, no meningismus Respiratory: chest non-tender, lungs clear, normal breath sounds Cardiovascular #1: regular rate, rhythm, no murmur, tachycardia Gastrointestinal: normal bowel sounds, non tender, no mass, no organomegaly, no bruit, non-distended Musculoskeletal: back normal, gait/station normal, normal range of motion Psychiatric: mood/affect normal Skin: warm/dry Medical Decision Making Diagnostic Impression: Primary Impression: Chest pain Qualified Codes: R07.9 - Chest pain, unspecified Additional Impressions: HTN (hypertension) Qualified Codes: I10 - Essential (primary) hypertension Cocaine abuse ER Course Patient presents with chest pain secondary to cocaine. First set of troponin negative. Artery much improved after IV fluid. He said he has not been taking his blood pressure medication. It's coming down with medication and was effective cocaine went off. No evidence of ACS, PE, dissection. If the second troponin is negative, we'll discharge home. Lab Results Impression labs unremarkable EKG Diagnostic Results Rate: tachycardiac Rhythm: NSR ST Segments: other - NSST changes Rhythm Strip Diag. Results Rhythm Strip Time: 06:29 EP Interpretation: yes Rate: 115 Rhythm: NSR, no PVC's, no ectopy Chest X-Ray Diagnostic Results Chest X-Ray Diagnostic Results : Chest X-Ray Ordered: Yes # of Views/Limited/Complete: 1 View Indication: Chest Pain EP Interpretation: Yes Interpretation: no consolidation, no effusion, no pneumothorax, no acute cardiopulmonary disease Impression: No acute disease Electronically Signed by: Dick Fry MD Last Vital Signs Date Time Temp Pulse Resp B/P (MAP) Pulse Ox O2 Delivery O2 Flow Rate FiO2 18 04:13 98.2 121 18 165/111 95 Room Air 98.2 Status: improved Disposition: HOME, SELF-CARE Condition: Stable Patient Instructions: Nonspecific Chest Pain Additional Instructions: Stop using cocaine and other drugs. Go to rehabilitation. Take your blood pressure medication. Follow-up your with in 2-3 days. Return of worse. DICK FRY M.D. Jan 28, 2018 04:32
[2018-01-28 04:40] LABS: BASOPHILS % (AUTO) 0.4 % (0.0-2.0); HEMATOCRIT 45.2 % (42.0-52.0); HEMOGLOBIN 15.5 G/DL (14.2-18.0); LYMPHOCYTES % (AUTO) 17.1 % (20.0-45.0); MEAN CORPUSCULAR VOLUME 87 FL (80-99); MONOCYTES % (AUTO) 4.9 % (1.0-10.0); NEUTROPHILS % (AUTO) 77.5 % (45.0-75.0); PLATELET COUNT 286 K/UL (150-450); RED BLOOD COUNT 5.17 M/UL (4.70-6.10); RED CELL DISTRIBUTION WIDTH 13.3 % (11.6-14.8); WHITE BLOOD COUNT 17.4 K/UL (4.8-10.8)
[2018-01-28 04:51] LABS: ANION GAP 14 mmol/L (5-15); BLOOD UREA NITROGEN 18 mg/dL (7-18); CALCIUM 9.1 MG/DL (8.5-10.1); CARBON DIOXIDE 22 MMOL/L (21-32); CHLORIDE 103 MMOL/L (98-107); CREATININE 1.1 MG/DL (0.55-1.30); POTASSIUM 3.4 MMOL/L (3.5-5.1); SODIUM 138 MMOL/L (136-145)
[2018-01-28 05:02] VITALS: BP 194/106
[2018-01-28 05:05] LABS: ALANINE AMINOTRANSFERASE 81 U/L (12-78); ALBUMIN 4.4 G/DL (3.4-5.0); ALKALINE PHOSPHATASE 96 U/L (46-116); ASPARTATE AMINO TRANSFERASE 51 U/L (15-37); BILIRUBIN,TOTAL 0.5 MG/DL (0.2-1.0); CREATINE KINASE 288 U/L (26-308)
[2018-01-28] MEDS ORDERED: LORazepam Inj 2mg/ml 1ml IV ONE (05:15)
[2018-01-28] MEDS ORDERED: LORazepam Inj 2mg/ml 1ml ONE (05:17)
[2018-01-28 05:29] LABS: APPEARANCE,URINE CLEAR; BILIRUBIN, URINE NEGATIVE (NEGATIVE); COLOR,URINE PALE YELLOW; GLUCOSE, URINE (UA) NEGATIVE (NEGATIVE); KETONES,URINE NEGATIVE (NEGATIVE); LEUKOCYTE ESTERASE ,URINE NEGATIVE (NEGATIVE); NITRITE,URINE NEGATIVE (NEGATIVE); PH,URINE 5 (4.5-8.0); PROTEIN,URINE 2+ (NEGATIVE); UROBILINOGEN,URINE NORMAL MG/DL (0.0-1.0)
--- NOTE | 2018-01-28 05:44 | Diagnostic Imaging Report ---
EXAM: XR Chest, 1 View CLINICAL HISTORY: CP TECHNIQUE: Frontal view of the chest. COMPARISON: Chest x-ray 07/02/17 (image without report) FINDINGS: Lungs: Unremarkable. No consolidation. Pleural space: Unremarkable. No pneumothorax. Heart: Unremarkable. No cardiomegaly. Mediastinum: Unremarkable. Bones/joints: Mild dextrocurvature of the thoracic spine. IMPRESSION: No acute cardiopulmonary process.
[2018-01-28 06:20] VITALS: BP 179/101
[2018-01-28 06:47] VITALS: BP 182/94
[2018-01-28 06:50] VITALS: BP 182/94
--- NOTE | 2018-01-29 16:53 | Cardiology Report ---
APPROVED REPORT EKG Measurement Heart [id number] Sinus tachycardia Otherwise normal ECG
== END 2018-01-28 06:50 | disposition home or self-care (01) ==
LOC: EDBD 04:23 → EMR 05:00
DX: R07.9 Chest pain, unspecified (principal); I10 Essential (primary) hypertension; F14.10 Cocaine abuse, uncomplicated; B19.20 Unspecified viral hepatitis C without hepatic coma; F20.9 Schizophrenia, unspecified; Z88.5 Allergy status to narcotic agent
CPT/HCPCS: 36415; 71045; 80053; 80307; 81003; 82550; 82553; 84484; 85025; 93005; 96360; 96361; 96372; 96374; 96375; 96376; 99284; J0360; J1630; J7040

== ENCOUNTER 2018-01-28 07:07 | Emergency (ER) | payer MEDICARE, MEDICAID ==
[~2018-01-28] VITALS: Ht 177.8 cm; Wt 86.2 kg
[2018-01-28 07:45] VITALS: BP 163/83
[2018-01-28] MEDS ORDERED: Haloperidol 5mg/ml Inj IM ONE (08:00)
[2018-01-28] MEDS ORDERED: Sodium Chloride 500ML 500 ML IV ONE ×2 (08:15→11:30)
[2018-01-28 09:30] LABS: BASOPHILS % (AUTO) 0.3 % (0.0-2.0); HEMATOCRIT 42.8 % (42.0-52.0); HEMOGLOBIN 14.4 G/DL (14.2-18.0); LYMPHOCYTES % (AUTO) 20.6 % (20.0-45.0); MEAN CORPUSCULAR VOLUME 89 FL (80-99); MONOCYTES % (AUTO) 5.4 % (1.0-10.0); NEUTROPHILS % (AUTO) 73.7 % (45.0-75.0); PLATELET COUNT 249 K/UL (150-450); RED BLOOD COUNT 4.81 M/UL (4.70-6.10); WHITE BLOOD COUNT 15.5 K/UL (4.8-10.8)
[2018-01-28 09:39] LABS: ANION GAP 12 mmol/L (5-15); BLOOD UREA NITROGEN 16 mg/dL (7-18); CALCIUM 8.6 MG/DL (8.5-10.1); CARBON DIOXIDE 22 MMOL/L (21-32); CHLORIDE 108 MMOL/L (98-107); CREATININE 0.9 MG/DL (0.55-1.30); POTASSIUM 3.6 MMOL/L (3.5-5.1); SODIUM 142 MMOL/L (136-145)
--- NOTE | 2018-01-28 09:40 | Emergency Room Report ---
History of Present Illness General Chief Complaint: Nausea Present Illness HPI The patient is a 57-year-old male who presented after increased nausea. The patient had recently been discharged from the hospital. Patient had ingested cocaine last night. Patient states that he had been feeling had been feeling somewhat dizzy. The patient had been given IV hydralazine for hypertension. Patient prior history of cardiac stent placement. He reports taking anticoagulation. He denies any bleeding. Allergies: Coded Allergies: CODEINE (Verified Adverse Reaction, Intermediate, 10/29/15) Patient History Reviewed Nursing Documentation: PMH: Agreed; PSxH: Agreed Nursing Documentation-PMH Hx Cardiac Problems: Yes - STENT X2 Hx Hypertension: Yes Hx Cancer: No Hx Gastrointestinal Problems: Yes - HEP C Hx Neurological Problems: No Review of Systems All Other Systems: negative except mentioned in HPI Physical Exam Vital Signs Date Time Temp Pulse Resp B/P (MAP) Pulse Ox O2 Delivery O2 Flow Rate FiO2 01/28/18 07:33 98.3 117 20 163/83 95 Room Air 98.2 Sp02 EP Interpretation: reviewed, normal General Appearance: normal inspection, well appearing, no apparent distress, alert, GCS 15 Head: atraumatic ENT: normal ENT inspection, hearing grossly normal, normal voice Neck: normal inspection, full range of motion, supple, no bony tend Respiratory: normal inspection, lungs clear, normal breath sounds, no respiratory distress, no retraction, no wheezing Cardiovascular #1: regular rate, rhythm, no edema Gastrointestinal: normal inspection, normal bowel sounds, non tender, soft, no guarding, no hernia Genitourinary: no CVA tenderness Musculoskeletal: normal inspection, back normal, normal range of motion Neurologic: normal inspection, alert, oriented x3, responsive, hospice music therapist III-XII nml as tested, speech normal Psychiatric: normal inspection, judgement/insight normal, mood/affect normal Skin: normal inspection, normal color, no rash Medical Decision Making Diagnostic Impression: Primary Impression: Cocaine abuse ER Course Patient presented for abdominal pain. Differential diagnoses included ischemic bowel, appendicitis, perforated viscus, abdominal aortic aneurysm, inferior myocardial infarction, viral gastroenteritis Because of complexity of patient's case laboratory testing and imaging studies were ordered.Repeat laboratory testing showed improvement in the patient's white blood count from previous visit several hours earlier. This does not appear to be infection likely due to stimulant use The patient's previous urine tox screen showed multiple substances consistent with the patient's story recent cocaine use.The patient was given medications for nausea as well as IV fluids, patient was noted to have. EKG with normal sinus rhythm with a rate of [address] or T wave changes.The patient is advised to follow up with primary care doctor in 1-2 days. The patient is advised to stop using drugs. Labs Test 01/28/18 08:16 White Blood Count 15.5 K/UL (4.8-10.8) Red Blood Count 4.81 M/UL (4.70-6.10) Hemoglobin 14.4 G/DL (14.2-18.0) Hematocrit 42.8 % (42.0-52.0) Mean Corpuscular Volume 89 FL (80-99) Mean Corpuscular Hemoglobin 30.0 PG (27.0-31.0) Mean Corpuscular Hemoglobin Concent 33.7 G/DL (32.0-36.0) Red Cell Distribution Width 13.0 % (11.6-14.8) Platelet Count 249 K/UL (150-450) Mean Platelet Volume 7.0 FL (6.5-10.1) Neutrophils (%) (Auto) 73.7 % (45.0-75.0) Lymphocytes (%) (Auto) 20.6 % (20.0-45.0) Monocytes (%) (Auto) 5.4 % (1.0-10.0) Eosinophils (%) (Auto) 0.0 % (0.0-3.0) Basophils (%) (Auto) 0.3 % (0.0-2.0) Sodium Level 142 MMOL/L (136-145) Potassium Level 3.6 MMOL/L (3.5-5.1) Chloride Level 108 MMOL/L (98-107) Carbon Dioxide Level 22 MMOL/L (21-32) Anion Gap 12 mmol/L (5-15) Blood Urea Nitrogen 16 mg/dL (7-18) Creatinine 0.9 MG/DL (0.55-1.30) Estimat Glomerular Filtration Rate > 60 mL/min (>60) Glucose Level 112 MG/DL (74-106) Calcium Level 8.6 MG/DL (8.5-10.1) Total Bilirubin 0.6 MG/DL (0.2-1.0) Aspartate Amino Transf (AST/SGOT) 44 U/L (15-37) Alanine Aminotransferase (ALT/SGPT) 65 U/L (12-78) Alkaline Phosphatase 87 U/L (46-116) Total Protein 7.8 G/DL (6.4-8.2) Albumin 3.9 G/DL (3.4-5.0) Globulin 3.9 g/dL Albumin/Globulin Ratio 1.0 (1.0-2.7) Last Vital Signs Date Time Temp Pulse Resp B/P (MAP) Pulse Ox O2 Delivery O2 Flow Rate FiO2 01/28/18 07:45 98.2 117 20 163/83 95 Room Air 98.2 Status: improved Disposition: HOME, SELF-CARE Condition: Stable Kurtis Garcia MD Jan 28, 2018 09:40
[2018-01-28 09:43] LABS: ALANINE AMINOTRANSFERASE 65 U/L (12-78); ALBUMIN 3.9 G/DL (3.4-5.0); ALKALINE PHOSPHATASE 87 U/L (46-116); ASPARTATE AMINO TRANSFERASE 44 U/L (15-37); BILIRUBIN,TOTAL 0.6 MG/DL (0.2-1.0)
[2018-01-28 10:00] VITALS: BP 142/97
[2018-01-28 12:51] VITALS: BP 170/100
--- NOTE | 2018-01-29 16:52 | Cardiology Report ---
APPROVED REPORT EKG Measurement Heart [id number] Sinus tachycardia Otherwise normal ECG
== END 2018-01-28 12:53 | disposition home or self-care (01) ==
LOC: EMR 07:50
DX: F14.10 Cocaine abuse, uncomplicated (principal); R11.0 Nausea; I10 Essential (primary) hypertension; B19.20 Unspecified viral hepatitis C without hepatic coma; Z88.5 Allergy status to narcotic agent
CPT/HCPCS: 36415; 80053; 85025; 93005

== ENCOUNTER 2018-12-01 15:09 | Emergency (ER) | payer MEDICAID, MEDICARE ==
[~2018-12-01] VITALS: Ht 177.8 cm; Wt 81.6 kg
[2018-12-01 15:21] VITALS: BP 170/68
--- NOTE | 2018-12-01 15:29 | NUR ---
ED Nurse Note: Endorsed to contact Poison control to [facility]. Addendum: 12/01/18 at 1543 by LIZET Patient did not come with any medication bottles.
--- NOTE | 2018-12-01 15:48 | NUR ---
ED Nurse Note:pt. was BIBA from home with c/o taking bunch of unknown pills, he is stating name for meds Mopar but this name doesn't come up at pharmacy section, pt. stated that he just felt anxiety when he took meds not really trying to hurt himself, reported hearing some voices
--- NOTE | 2018-12-01 15:58 | Emergency Room Report ---
History of Present Illness General Chief Complaint: Overdose Source: Medical Record Present Illness HPI This is a 58-year-old male who took extra doses of his anxiety medication. He does not recall which medication it is or how much she took. He states that he has been hearing voices. He does state that they are telling him to kill himself. He does not have a plan. And in order to stop the voices he took extra dose of medication. He states he lives at home. He did not bring the medication with him. He denies any other associated symptoms. Allergies: Coded Allergies: CODEINE (Verified Adverse Reaction, Intermediate, 10/29/15) Patient History Past Medical History: psych hx Past Surgical History: unable to obtain Pertinent Family History: unable to obtain Social History: Reports: smoking, alcohol use Nursing Documentation-[facility] Past Medical History: No History, Except For Hx Cardiac Problems: Yes - STENT X2 Hx Hypertension: Yes Hx Cancer: No Hx Gastrointestinal Problems: Yes - HEP C History Of Psychiatric Problem: Yes - Depression Hx Neurological Problems: No Review of Systems All Other Systems: limited Physical Exam Vital Signs Date Time Temp Pulse Resp B/P (MAP) Pulse Ox O2 Delivery O2 Flow Rate FiO2 12/01/18 15:16 98.2 96 16 170/68 99 Room Air General Appearance: well appearing, no apparent distress Head: normocephalic, atraumatic ENT: hearing grossly normal, normal voice Neck: full range of motion, supple Respiratory: no respiratory distress, speaking full sentences Gastrointestinal: non tender, soft Musculoskeletal: no calf tenderness Neurologic: alert, normal gait Psychiatric: normal inspection, anxious Skin: normal inspection, no rash Medical Decision Making Behavioral: Depression, Anxiety Diagnostic Impression: Primary Impression: Suicidal behavior ER Course Patient has had multiple bedside evaluation. Patient alert and nontoxic- appearing. The patient does have positive aspirin level. However, my repeat examination and blood draw, the aspirin level is going down. I see no indication for alkalinization or dialysis. The patient has no other associated symptoms. The patient is hearing voices and suicidal and the patient would need to be evaluated by psychiatry. The patient is medically cleared. No other associated symptoms. The patient in was observed here for several hours with no change in vital signs. Laboratory Tests Test 12/01/18 15:58 12/01/18 18:00 12/01/18 21:00 White Blood Count 13.5 K/UL (4.8-10.8) H Red Blood Count 4.93 M/UL (4.70-6.10) Hemoglobin 14.9 G/DL (14.2-18.0) Hematocrit 41.9 % (42.0-52.0) L Mean Corpuscular Volume 85 FL (80-99) Mean Corpuscular Hemoglobin 30.2 PG (27.0-31.0) Mean Corpuscular Hemoglobin Concent 35.5 G/DL (32.0-36.0) Red Cell Distribution Width 12.1 % (11.6-14.8) Platelet Count 289 K/UL (150-450) Mean Platelet Volume 5.4 FL (6.5-10.1) L Neutrophils (%) (Auto) 68.9 % (45.0-75.0) Lymphocytes (%) (Auto) 24.0 % (20.0-45.0) Monocytes (%) (Auto) 6.2 % (1.0-10.0) Eosinophils (%) (Auto) 0.1 % (0.0-3.0) Basophils (%) (Auto) 0.8 % (0.0-2.0) Sodium Level 140 MMOL/L (136-145) Potassium Level 3.8 MMOL/L (3.5-5.1) Chloride Level 103 MMOL/L (98-107) Carbon Dioxide Level 25 MMOL/L (21-32) Anion Gap 12 mmol/L (5-15) Blood Urea Nitrogen 17 mg/dL (7-18) Creatinine 1.2 MG/DL (0.55-1.30) Estimate Glomerular Filtration Rate > 60 mL/min (>60) Glucose Level 96 MG/DL (74-106) Calcium Level 9.4 MG/DL (8.5-10.1) Total Bilirubin 0.4 MG/DL (0.2-1.0) Aspartate Amino Transferase (AST) 15 U/L (15-37) Alanine Aminotransferase (ALT) 21 U/L (12-78) Alkaline Phosphatase 96 U/L (46-116) Total Protein 7.9 G/DL (6.4-8.2) Albumin 4.0 G/DL (3.4-5.0) Globulin 3.9 g/dL Albumin/Globulin Ratio 1.0 (1.0-2.7) Salicylates Level 4.7 ug/mL (2.8-20) 3.1 ug/mL (2.8-20) Acetaminophen Level < 2 MCG/ML (10-30) L Serum Alcohol < 3 mg/dL Urine Opiates Screen Negative (NEGATIVE) Urine Barbiturates Screen Negative (NEGATIVE) Phencyclidine (PCP) Screen Negative (NEGATIVE) Urine Amphetamines Screen Negative (NEGATIVE) Urine Benzodiazepines Screen Negative (NEGATIVE) Urine Cocaine Screen Positive (NEGATIVE) H Urine Marijuana (THC) Screen Positive (NEGATIVE) H EKG Diagnostic Results EKG Time: 16:11 Rate: normal Rhythm: NSR ST Segments: no acute changes Last Vital Signs Date Time Temp Pulse Resp B/P (MAP) Pulse Ox O2 Delivery O2 Flow Rate FiO2 12/01/18 15:21 98.2 96 16 170/68 99 Room Air Disposition: XFER TO PSYCH HOSP/UNIT Condition: Stable Referrals: NOT CHOSEN IPA/MD,REFERRING (PCP) YONAS CADENA Dec 01, 2018 15:57
--- NOTE | 2018-12-01 16:00 | NUR ---
ED Nurse Note:pt's personal belongings placed in locker #1
--- NOTE | 2018-12-01 16:11 | NUR ---
ED Nurse Note:blood sent to labs ,IV fluids given, continue to monitor
[2018-12-01 16:35] LABS: ANION GAP 12 mmol/L (5-15); BASOPHILS % (AUTO) 0.8 % (0.0-2.0); BLOOD UREA NITROGEN 17 mg/dL (7-18); CALCIUM 9.4 MG/DL (8.5-10.1); CARBON DIOXIDE 25 MMOL/L (21-32); CHLORIDE 103 MMOL/L (98-107); CREATININE 1.2 MG/DL (0.55-1.30); EOSINOPHILS % (AUTO) 0.1 % (0.0-3.0); HEMATOCRIT 41.9 % (42.0-52.0); HEMOGLOBIN 14.9 G/DL (14.2-18.0); MEAN CORPUSCULAR VOLUME 85 FL (80-99); MONOCYTES % (AUTO) 6.2 % (1.0-10.0); NEUTROPHILS % (AUTO) 68.9 % (45.0-75.0); PLATELET COUNT 289 K/UL (150-450); POTASSIUM 3.8 MMOL/L (3.5-5.1); RED BLOOD COUNT 4.93 M/UL (4.70-6.10); RED CELL DISTRIBUTION WIDTH 12.1 % (11.6-14.8); SODIUM 140 MMOL/L (136-145); WHITE BLOOD COUNT 13.5 K/UL (4.8-10.8)
[2018-12-01 16:39] LABS: ALANINE AMINOTRANSFERASE 21 U/L (12-78); ALKALINE PHOSPHATASE 96 U/L (46-116); ASPARTATE AMINO TRANSFERASE 15 U/L (15-37); BILIRUBIN,TOTAL 0.4 MG/DL (0.2-1.0)
--- NOTE | 2018-12-01 16:43 | NUR ---
ED Nurse Note:pt. reported voices he is hearing getting louder, they not telling him nothing bad at this time
[2018-12-01 18:06] VITALS: BP 164/97
--- NOTE | 2018-12-01 18:07 | NUR ---
ED Nurse Note:urine was sent to labs
--- NOTE | 2018-12-01 19:05 | NUR ---
ED Nurse Note: Patient is resting comfortably, no s/s of acute distress.
--- NOTE | 2018-12-01 19:25 | NUR ---
HAND-OFF: Report given to Catrina.
--- NOTE | 2018-12-01 20:54 | NUR ---
ED Nurse Note: Repeat salicylate lab sent down.
--- NOTE | 2018-12-01 22:51 | NUR ---
ED Nurse Note: Spoke to Theo from [facility], who believes patient may be too high risk for his facility to manage mental care based upon patient history. He will consult with his director and follow up with us.
--- NOTE | 2018-12-01 22:52 | NUR ---
ED Nurse Note: Patient sleeping, no s/s of acute distress, vital signs stable.
[2018-12-01 22:53] VITALS: BP 139/72
--- NOTE | 2018-12-02 00:25 | NUR ---
ED Nurse Note: Patient resting comfortably, vital signs stable.
[2018-12-02 00:55] VITALS: BP 162/81
--- NOTE | 2018-12-02 02:16 | NUR ---
ED Nurse Note: Patient still sleeping, no s/s of acute distress.
[2018-12-02 02:18] VITALS: BP 156/74
[2018-12-02 04:03] VITALS: BP 133/61
--- NOTE | 2018-12-02 04:04 | NUR ---
ED Nurse Note: Patient still sleeping, vital signs within normal range. no s/s of acute distress. Patient breathing symmetric, regular, Pulse regular and full. Blood pressure trending down systolic BP <135 at this time.
[2018-12-02 06:00] VITALS: BP 133/61
--- NOTE | 2018-12-02 06:00 | NUR ---
ED Nurse Note: Discovered patient was homeless, completed homeless packet and minicog. Patient agreed to go to a nursing home and is waiting in the waiting room while I call the entire list to see who can accept him.
--- NOTE | 2018-12-04 19:29 | Cardiology Report ---
APPROVED REPORT EKG Measurement Heart [id number] Normal sinus rhythm Normal ECG
== END 2018-12-02 06:00 | disposition home or self-care (01) ==
LOC: EDBD 15:09 → EMR 15:31
DX: R45.851 Suicidal ideations (principal); F41.9 Anxiety disorder, unspecified; F32.9 Major depressive disorder, single episode, unspecified; F17.200 Nicotine dependence, unspecified, uncomplicated; I10 Essential (primary) hypertension; B19.20 Unspecified viral hepatitis C without hepatic coma; Z95.5 Presence of coronary angioplasty implant and graft; Z88.6 Allergy status to analgesic agent; F14.10 Cocaine abuse, uncomplicated
CPT/HCPCS: 36415; 80053; 80307; 85025; 93005; 96360; 96361; 99285; G0480; 80329

== ENCOUNTER 2019-05-23 07:56 | Inpatient (IN) | payer MEDICARE, MEDICAID ==
[2019-05-23] VITALS (12 sets, daily range): BP systolic 115–145; BP diastolic 70–90
[~2019-05-23] VITALS: Ht 177.8 cm; Wt 86.2 kg
--- NOTE | 2019-05-23 07:56 | NUR ---
ED Nurse Note: Pt brought in by [facility] [id number] from his apartment due to SI. EMS reported that pt is experiencing auditory hallucinations and tells him to hurt himself. Pt wants to wrap a cord around his neck and claims that he took 15 pills of "blood pressure" medications 45 mins prior ED arrival. Pt is taking metoprolol for HTN. AAO x4 and ambulatory. Respirations are even and non labored. NSR on electromechanical technologist. Pt is on 5150 HOLD.
--- NOTE | 2019-05-23 08:00 | NUR ---
ED Nurse Note: Jyothi khan sitter at the bed side. Pt's belongings placed on psych locker #2.
--- NOTE | 2019-05-23 08:10 | NUR ---
ED Nurse Note: Primary RN made verbal agreement to pt not to hurt himself and that he is in a safe place with a sitter to watch over him. Pt verbalized understanding.
[2019-05-23] MEDS ORDERED: Glucagon 1mg Inj IV ONE (08:15)
--- NOTE | 2019-05-23 08:15 | NUR ---
ED Nurse Note: Pt wrapped a cord around his neck and threatening physical harm to himself. Jyothi sitter still at the bed side. Primary RN re-oriented pt not to hurt himself and took the cords out from his neck. Security called. ER charge nurse and ERMD were notified.
[2019-05-23 08:22] LABS: BASOPHILS % (AUTO) 0.8 % (0.0-2.0); EOSINOPHILS % (AUTO) 0.1 % (0.0-3.0); HEMATOCRIT 43.2 % (42.0-52.0); HEMOGLOBIN 14.8 G/DL (14.2-18.0); LYMPHOCYTES % (AUTO) 19.7 % (20.0-45.0); MEAN CORPUSCULAR VOLUME 89 FL (80-99); MONOCYTES % (AUTO) 6.5 % (1.0-10.0); PLATELET COUNT 372 K/UL (150-450); RED BLOOD COUNT 4.85 M/UL (4.70-6.10); RED CELL DISTRIBUTION WIDTH 12.8 % (11.6-14.8); WHITE BLOOD COUNT 15.8 K/UL (4.8-10.8)
--- NOTE | 2019-05-23 08:25 | NUR ---
ED Nurse Note: Pt still verbalizes that he wants to hurt himslef at this time. ER MD was notified. Pt on schedule supervisor and sitter Jyothi at the bed side.
--- NOTE | 2019-05-23 08:33 | Emergency Room Report ---
History of Present Illness General Chief Complaint: Suicidal Source: Patient, EMS Present Illness HPI 59-year-old male presents ED for evaluation. Brought in by EMS from home. Reportedly overdosed on his blood pressure medicine in order to hurt himself. 10 to 15 tablets of metoprolol about 45 minutes prior to arrival states he feels suicidal. Denies hearing voices. States that he tries to wrap a cord around his neck. History of psych. States he was at another psychiatric facility recently. Denies any alcohol or drug use. Denies chest pain or shortness of breath. No other aggravating relieving factors. Denies any other associated symptoms Allergies: Coded Allergies: CODEINE (Verified Adverse Reaction, Intermediate, 10/29/15) Patient History Past Medical History: HTN, psych hx Past Surgical History: none Pertinent Family History: none Social History: Denies: smoking, alcohol use, drug use Immunizations: UTD Reviewed Nursing Documentation: PMH: Agreed; PSxH: Agreed Nursing Documentation-PMH Past Medical History: No History, Except For Hx Cardiac Problems: Yes Hx Hypertension: Yes Hx Cancer: No Hx Gastrointestinal Problems: No Hx Neurological Problems: Yes Hx Weakness: Yes Review of Systems All Other Systems: negative except mentioned in HPI Physical Exam Vital Signs Date Time Temp Pulse Resp B/P (MAP) Pulse Ox O2 Delivery O2 Flow Rate FiO2 05/23/19 07:44 97.7 102 14 126/79 (95) 97 Room Air Sp02 EP Interpretation: reviewed, normal General Appearance: no apparent distress, alert, GCS 15, non-toxic Head: normocephalic, atraumatic Eyes: bilateral eye normal inspection, bilateral eye PERRL ENT: hearing grossly normal, normal pharynx, no angioedema, normal voice Neck: full range of motion, supple/symm/no masses Respiratory: chest non-tender, lungs clear, normal breath sounds, speaking full sentences Cardiovascular #1: regular rate, rhythm, no edema Cardiovascular #2: 2+ carotid (R), 2+ carotid (L), 2+ radial (R), 2+ radial (L) , 2+ dorsalis pedis (R), 2+ dorsalis pedis (L) Gastrointestinal: normal bowel sounds, non tender, soft, non-distended, no guarding, no rebound Rectal: deferred Genitourinary: normal inspection, no CVA tenderness Musculoskeletal: back normal, gait/station normal, normal range of motion, non- tender Neurologic: alert, oriented x3, responsive, motor strength/tone normal, sensory intact, speech normal Psychiatric: depressed affect, anxious Suicide Risk Assessment: Suicidal Ideation: Yes Had intent to initiate attempt: Yes Pt's plan for suicide attempt: Yes Has means to complete attempt: Yes Reflexes: 3+ bicep (R), 3+ bicep (L), 3+ tricep (R), 3+ tricep (L), 3+ knee (R) , 3+ knee (L) Lymphatic: no adenopathy Procedures Critical Care Time Critical Care Time i. I feel this is a highly complex case requiring extensive working including EKG/Rhythm strip, Xray/CT/US, Blood/urine lab work, repeat exams while in ED, and administration of strong opiates/narcotics for pain control, admission to hospital or close patient follow up. Total time: 50 min bedside evaluation and treatment excludes procedures (EKG). Reason for critical care: overdose, renal insufficiency, SI Possible complications: hypotension, hypertension, OK, shock, arrhythmias, metabolic acidosis, end organ damage, respiratory failure. Interventions: labs, IV fluids, EKG, discussion with poison control, cardiac monitoring. Glucagon. Behavioral restraints. Course: Patient presenting status post overdose on metoprolol. SI. History of psych. Placed in restraints. Labs drawn. Given glucagon. Given IV fluids. EKG shows sinus rhythm. Within normal limits. Discussed with poison control. There is renal insufficiency. Positive cocaine and THC. Consultations: nursing staff, EMS, family Performed by: Dr Curtis Tolerated well condition = serious j. because of unstable vital signs this patient had a condition that could potentially threaten life or limb. I feel this is a critical patient who required my full attention while patient was considered critical. Total Critical Care Time excluding procedures was greater than 50 minutes Medical Decision Making Restraint Reassesment I, Jimi Curtis MD, have personally evaluated this patient. Laboratory tests have been reviewed and addressed accordingly. The patient is deemed to present a danger to themselves and/or others. This is based on the exam, history (provided by patient, EMS/[employer] and/or family) and observed or reported behavior. Attempts for non-invasive measures have been considered and/or attempted, however, have been futile. It is in the best interest of the nursing staff, the patient, and others involved in this patient's care that behavioral restraints be applied. Patient evaluation reveals the following: Diagnostic Impression: Primary Impression: Overdose of medication Qualified Codes: T50.902A - Poisoning by unspecified drugs, medicaments and biological substances, intentional self-harm, initial encounter Additional Impressions: Suicidal ideation CLAUDY (acute kidney injury) Cocaine abuse ER Course Hospital Course 59-year-old male presents to ED s/p overdose attempt. h/o psych Differential diagnoses include: dehydration, BB overdose, alcohol toxicity Clinical course patient placed on stretcher. On radiation monitor. Sitter at bedside. After initial history and physical ordered labs, IV fluids, EKG Labs reviewed- BUN/Cr elevated, noted leukocytosis, hemoglobin/hematocrit stable , +cocaine + THC EKG - NSR, no acute ischemic changes interpreted by me In the presence of [employer] and the sitter patient attempted to wrap a cord around his neck. Patient was then restrained with behavioral restraints. Is on 5150 hold We contacted poison control. Recommended monitoring and IV fluids. If BP were to drop recommend glucagon 5 mg and then got infusion. During ED course BP remains normal. Heart rate normal. Patient is alert and oriented. patient remains on one-to-one observation case discussed with Dr. Peña and he agreed to accept the patient to his service for further care and support i. I feel this is a highly complex case requiring extensive working including EKG/Rhythm strip, Xray/CT/US, Blood/urine lab work, repeat exams while in ED, and administration of strong opiates/narcotics for pain control, admission to hospital or close patient follow up. Diagnosis - overdose of mediation, suicidal ideation, CLAUDY, cocaine abuse Admitted to telemetry in serious condition Labs Test 05/23/19 08:05 05/23/19 09:10 White Blood Count 15.8 K/UL (4.8-10.8) Red Blood Count 4.85 M/UL (4.70-6.10) Hemoglobin 14.8 G/DL (14.2-18.0) Hematocrit 43.2 % (42.0-52.0) Mean Corpuscular Volume 89 FL (80-99) Mean Corpuscular Hemoglobin 30.6 PG (27.0-31.0) Mean Corpuscular Hemoglobin Concent 34.3 G/DL (32.0-36.0) Red Cell Distribution Width 12.8 % (11.6-14.8) Platelet Count 372 K/UL (150-450) Mean Platelet Volume 5.8 FL (6.5-10.1) Neutrophils (%) (Auto) 73.0 % (45.0-75.0) Lymphocytes (%) (Auto) 19.7 % (20.0-45.0) Monocytes (%) (Auto) 6.5 % (1.0-10.0) Eosinophils (%) (Auto) 0.1 % (0.0-3.0) Basophils (%) (Auto) 0.8 % (0.0-2.0) Sodium Level 139 MMOL/L (136-145) Potassium Level 4.0 MMOL/L (3.5-5.1) Chloride Level 103 MMOL/L (98-107) Carbon Dioxide Level 24 MMOL/L (21-32) Anion Gap 12 mmol/L (5-15) Blood Urea Nitrogen 42 mg/dL (7-18) Creatinine 1.5 MG/DL (0.55-1.30) Estimat Glomerular Filtration Rate 48.1 mL/min (>60) Glucose Level 123 MG/DL (74-106) Calcium Level 9.3 MG/DL (8.5-10.1) Total Bilirubin 0.4 MG/DL (0.2-1.0) Aspartate Amino Transf (AST/SGOT) 19 U/L (15-37) Alanine Aminotransferase (ALT/SGPT) 19 U/L (12-78) Alkaline Phosphatase 83 U/L (46-116) Total Protein 8.6 G/DL (6.4-8.2) Albumin 4.2 G/DL (3.4-5.0) Globulin 4.4 g/dL Albumin/Globulin Ratio 1.0 (1.0-2.7) Salicylates Level 5.2 ug/mL (2.8-20) Acetaminophen Level < 2 MCG/ML (10-30) Serum Alcohol < 3 mg/dL Urine Color Pale yellow Urine Appearance Clear Urine pH 5 (4.5-8.0) Urine Specific [place] 1.020 (1.005-1.035) Urine Protein 1+ (NEGATIVE) Urine Glucose (UA) Negative (NEGATIVE) Urine Ketones 2+ (NEGATIVE) Urine Blood 2+ (NEGATIVE) Urine Nitrite Negative (NEGATIVE) Urine Bilirubin Negative (NEGATIVE) Urine Urobilinogen Normal MG/DL (0.0-1.0) Urine Leukocyte Esterase 1+ (NEGATIVE) Urine RBC 2-4 /HPF (0 - 0) Urine WBC 0-2 /HPF (0 - 0) Urine Squamous Epithelial Cells Occasional /LPF Urine Amorphous Sediment Few /LPF (NONE) Urine Bacteria Few /HPF (NONE) Urine Opiates Screen Negative (NEGATIVE) Urine Barbiturates Screen Negative (NEGATIVE) Phencyclidine (PCP) Screen Negative (NEGATIVE) Urine Amphetamines Screen Negative (NEGATIVE) Urine Benzodiazepines Screen Negative (NEGATIVE) Urine Cocaine Screen Positive (NEGATIVE) Urine Marijuana (THC) Screen Positive (NEGATIVE) EKG Diagnostic Results Rate: normal Rhythm: NSR ST Segments: no acute changes ASA given to the pt in ED: No Rhythm Strip Diag. Results EP Interpretation: yes Rhythm: NSR, no PVC's, no ectopy Chest X-Ray Diagnostic Results Chest X-Ray Diagnostic Results : Chest X-Ray Ordered: Yes # of Views/Limited/Complete: 1 View Indication: Other EP Interpretation: Yes Interpretation: no consolidation, no effusion, no pneumothorax, no acute cardiopulmonary disease Impression: No acute disease Electronically Signed by: Electronically signed by Jimi Curtis MD Last Vital Signs Date Time Temp Pulse Resp B/P (MAP) Pulse Ox O2 Delivery O2 Flow Rate FiO2 05/23/19 08:00 97.7 95 15 142/80 98 Room Air Status: improved Disposition: ADMITTED INPATIENT Condition: Serious Jimi Curtis MD May 23, 2019 08:33
[2019-05-23 08:34] LABS: ANION GAP 12 mmol/L (5-15); BLOOD UREA NITROGEN 42 mg/dL (7-18); CALCIUM 9.3 MG/DL (8.5-10.1); CARBON DIOXIDE 24 MMOL/L (21-32); CHLORIDE 103 MMOL/L (98-107); CREATININE 1.5 MG/DL (0.55-1.30); SODIUM 139 MMOL/L (136-145)
[2019-05-23 08:39] LABS: ALANINE AMINOTRANSFERASE 19 U/L (12-78); ALBUMIN 4.2 G/DL (3.4-5.0); ALKALINE PHOSPHATASE 83 U/L (46-116); ASPARTATE AMINO TRANSFERASE 19 U/L (15-37); BILIRUBIN,TOTAL 0.4 MG/DL (0.2-1.0)
[2019-05-23] MEDS ORDERED: THORAZINE25 MG PO (09:00)
[2019-05-23] MEDS ORDERED: LISINOPRIL40 MG ORAL (09:00)
[2019-05-23] MEDS ORDERED: HYDROXYZIN50 MG/25 M PO (09:00)
[2019-05-23] MEDS ORDERED: TERAZOSIN HCL1 MG ORAL (09:00)
[2019-05-23] MEDS ORDERED: OMEPRAZOLE20 M2 ORAL (09:00)
[2019-05-23] MEDS ORDERED: CITALOPRAM HBR40 M1 ORAL (09:00)
[2019-05-23] MEDS ORDERED: RISPERIDONE2 MG ORAL (09:00)
[2019-05-23] MEDS ORDERED: ATORVASTATIN CA40 MG ORAL (09:00)
[2019-05-23] MEDS ORDERED: CLOPIDOGREL75 MG ORAL (09:00)
[2019-05-23] MEDS ORDERED: METOPROLOL TART25 MG ORAL (09:00)
--- NOTE | 2019-05-23 09:15 | NUR ---
medications are placed in the med box . the bag #[id number].
[2019-05-23 09:23] LABS: APPEARANCE,URINE CLEAR; BILIRUBIN, URINE NEGATIVE (NEGATIVE); COLOR,URINE PALE YELLOW; GLUCOSE, URINE (UA) NEGATIVE (NEGATIVE); KETONES,URINE 2+ (NEGATIVE); LEUKOCYTE ESTERASE ,URINE 1+ (NEGATIVE); NITRITE,URINE NEGATIVE (NEGATIVE); PH,URINE 5 (4.5-8.0); PROTEIN,URINE 1+ (NEGATIVE); UROBILINOGEN,URINE NORMAL MG/DL (0.0-1.0)
--- NOTE | 2019-05-23 10:28 | NUR ---
ED Nurse Note: Report given to Cally HARPER of telemetry unit.
--- NOTE | 2019-05-23 10:38 | NUR ---
ED Nurse Note: Pt transferred to telemetry unit via gurney with all belongings sent. Moy and RN accompanied pt. On portable monitoring coordinator.
--- NOTE | 2019-05-23 11:00 | NUR ---
NURSE NOTES: Admitted patient from ED to TELE rm 210-2. Received report from Li HARPER. Patient was transferred via gurney to tele. Patient appears confused, agitated and combative. Patient came up with a sitter at bedside. Patient is AAO X3 -4 with restlessness, able to make needs known. Skin is intact and warm on touch. Oriented patient to surrounding. Bed is in lowest position, with bedside rails up X2. Call light is within reach. MD aware of patient's admission, patient denies any SI or HI at this time and was able to contract for safety. All admission orders input by Dr. Lopez.Will continue with the plan of care.
--- NOTE | 2019-05-23 11:29 | Consultation ---
History of Present Illness General Date patient seen: May 23, 2019 Chief Complaint: Suicidal Present Illness HPI 59-year-old male with hx of HTN, CAD, s/p stent presented to ED from home.for evaluation of overdosed on his blood pressure medicine in order to hurt himself. 10 to 15 tablets of metoprolol about 45 minutes prior to arrival states he feels suicidal. States that he tries to wrap a cord around his neck. States he was at another psychiatric facility recently. Pt is admitted to telemetry for further management. Allergies: Coded Allergies: CODEINE (Verified Adverse Reaction, Intermediate, 10/29/15) Medication History Scheduled Aspirin* (Aspir 81*), 81 MG ORAL DAILY, (Reported) Atorvastatin Calcium* (Atorvastatin Calcium*), 80 MG ORAL BEDTIME, (Reported) Chlorpromazine (Chlorpromazine HCl), 50 MG PO DAILY, (Reported) Citalopram Hydrobromide* (Citalopram Hbr*), 40 MG ORAL DAILY, (Reported) Clopidogrel* (Clopidogrel*), 75 MG ORAL DAILY, (Reported) Hydroxyzine HCl (Hydroxyzine HCl), 50 MG PO DAILY, (Reported) Lisinopril (Lisinopril*), 20 MG ORAL DAILY, (Reported) Lisinopril* (Lisinopril*), 40 MG ORAL DAILY, (Reported) Metoprolol Tartrate* (Metoprolol Tartrate*), 25 MG ORAL EVERY 12 HOURS, ( Reported) Metoprolol Tartrate* (Metoprolol Tartrate*), 25 MG ORAL EVERY 12 HOURS, ( Reported) Omeprazole (Omeprazole), 20 MG ORAL DAILY, (Reported) Risperidone (Risperidone), 2 MG ORAL BID, (Reported) Risperidone* (Risperdal*), 2 MG ORAL BID, (Reported) Sertraline Hcl* (Zoloft*), 25 MG ORAL DAILY, (Reported) Terazosin Hcl* (Hytrin*), 5 MG ORAL BEDTIME, (Reported) Patient History Healthcare decision maker Resuscitation status Advanced Directive on File Past Medical/Surgical History Past Medical/Surgical History: (1) COPD (chronic obstructive pulmonary disease) (2) Tobacco abuse (3) CAD S/P percutaneous coronary angioplasty (4) Schizo-affective psychosis (5) HTN (hypertension) (6) Cocaine abuse Review of Systems All Other Systems: negative except mentioned in HPI Physical Exam General Appearance: WD/WN Lines, tubes and drains: peripheral HEENT: normocephalic, atraumatic Neck: non-tender, supple Respiratory/Chest: chest wall non-tender, lungs clear Breasts: no masses Cardiovascular/Chest: normal peripheral pulses Abdomen: normal bowel sounds Skin Exam: warm/dry Neurologic: toe former stitchdowns II-XII grossly normal Last 24 Hour Vital Signs Date Time Temp Pulse Resp B/P (MAP) Pulse Ox O2 Delivery O2 Flow Rate FiO2 05/23/19 10:38 97.7 95 14 126/85 100 Room Air 05/23/19 10:15 97 14 100 Room Air 05/23/19 10:00 96 14 97 Room Air 05/23/19 09:45 92 18 100 Room Air 05/23/19 09:30 92 17 98 Room Air 05/23/19 09:15 90 20 96 Room Air 05/23/19 09:00 97.7 95 15 138/89 97 Room Air 05/23/19 09:00 96 15 97 Room Air 05/23/19 08:45 88 17 100 Room Air 05/23/19 08:30 95 15 98 Room Air 05/23/19 08:00 97.7 95 15 142/80 98 Room Air 05/23/19 07:56 95 15 Room Air 05/23/19 07:44 97.7 102 14 126/79 (95) 97 Room Air Laboratory Tests Test 05/23/19 08:05 05/23/19 09:10 White Blood Count 15.8 K/UL (4.8-10.8) H Red Blood Count 4.85 M/UL (4.70-6.10) Hemoglobin 14.8 G/DL (14.2-18.0) Hematocrit 43.2 % (42.0-52.0) Mean Corpuscular Volume 89 FL (80-99) Mean Corpuscular Hemoglobin 30.6 PG (27.0-31.0) Mean Corpuscular Hemoglobin Concent 34.3 G/DL (32.0-36.0) Red Cell Distribution Width 12.8 % (11.6-14.8) Platelet Count 372 K/UL (150-450) Mean Platelet Volume 5.8 FL (6.5-10.1) L Neutrophils (%) (Auto) 73.0 % (45.0-75.0) Lymphocytes (%) (Auto) 19.7 % (20.0-45.0) L Monocytes (%) (Auto) 6.5 % (1.0-10.0) Eosinophils (%) (Auto) 0.1 % (0.0-3.0) Basophils (%) (Auto) 0.8 % (0.0-2.0) Sodium Level 139 MMOL/L (136-145) Potassium Level 4.0 MMOL/L (3.5-5.1) Chloride Level 103 MMOL/L (98-107) Carbon Dioxide Level 24 MMOL/L (21-32) Anion Gap 12 mmol/L (5-15) Blood Urea Nitrogen 42 mg/dL (7-18) H Creatinine 1.5 MG/DL (0.55-1.30) H Estimat Glomerular Filtration Rate 48.1 mL/min (>60) Glucose Level 123 MG/DL (74-106) H Calcium Level 9.3 MG/DL (8.5-10.1) Total Bilirubin 0.4 MG/DL (0.2-1.0) Aspartate Amino Transf (AST/SGOT) 19 U/L (15-37) Alanine Aminotransferase (ALT/SGPT) 19 U/L (12-78) Alkaline Phosphatase 83 U/L (46-116) Total Protein 8.6 G/DL (6.4-8.2) H Albumin 4.2 G/DL (3.4-5.0) Globulin 4.4 g/dL Albumin/Globulin Ratio 1.0 (1.0-2.7) Salicylates Level 5.2 ug/mL (2.8-20) Acetaminophen Level < 2 MCG/ML (10-30) L Serum Alcohol < 3 mg/dL Urine Color Pale yellow Urine Appearance Clear Urine pH 5 (4.5-8.0) Urine Specific [place] 1.020 (1.005-1.035) Urine Protein 1+ (NEGATIVE) H Urine Glucose (UA) Negative (NEGATIVE) Urine Ketones 2+ (NEGATIVE) H Urine Blood 2+ (NEGATIVE) H Urine Nitrite Negative (NEGATIVE) Urine Bilirubin Negative (NEGATIVE) Urine Urobilinogen Normal MG/DL (0.0-1.0) Urine Leukocyte Esterase 1+ (NEGATIVE) H Urine RBC 2-4 /HPF (0 - 0) H Urine WBC 0-2 /HPF (0 - 0) Urine Squamous Epithelial Cells Occasional /LPF Urine Amorphous Sediment Few /LPF (NONE) H Urine Bacteria Few /HPF (NONE) Urine Opiates Screen Negative (NEGATIVE) Urine Barbiturates Screen Negative (NEGATIVE) Phencyclidine (PCP) Screen Negative (NEGATIVE) Urine Amphetamines Screen Negative (NEGATIVE) Urine Benzodiazepines Screen Negative (NEGATIVE) Urine Cocaine Screen Positive (NEGATIVE) H Urine Marijuana (THC) Screen Positive (NEGATIVE) H Height (Feet): 5 Height (Inches): 10.00 Weight (Pounds): 190 Medications Current Medications Medications (Trade) Dose Ordered Sig/Mauricio Route PRN Reason Start Time Stop Time Status Last Admin Dose Admin Sodium Chloride 1,000 ml @ 200 mls/hr Q5H IV 05/23/19 09:00 06/22/19 08:59 05/23/19 09:16 Assessment/Plan Problem List: (1) Drug overdose ICD Codes: T50.901A - Poisoning by unspecified drugs, medicaments and biological substances, accidental (unintentional), initial encounter SNOMED: 53871984 (2) COPD (chronic obstructive pulmonary disease) ICD Codes: J44.9 - Chronic obstructive pulmonary disease, unspecified SNOMED: 21417311 (3) Tobacco abuse ICD Codes: Z72.0 - Tobacco use SNOMED: 39334575, 185093498 (4) Cocaine abuse ICD Codes: F14.10 - Cocaine abuse, uncomplicated SNOMED: 33051668 (5) CLAUDY (acute kidney injury) ICD Codes: N17.9 - Acute kidney failure, unspecified SNOMED: 2418249, 45724167 (6) Schizo-affective psychosis ICD Codes: F25.9 - Schizoaffective disorder, unspecified SNOMED: 06689454 (7) Suicidal overdose ICD Codes: T50.902A - Poisoning by unspecified drugs, medicaments and biological substances, intentional self-harm, initial encounter SNOMED: 70776060, 99925707 (8) CAD S/P percutaneous coronary angioplasty ICD Codes: I25.10 - Atherosclerotic heart disease of [place] coronary artery without angina pectoris; Z98.61 - Coronary angioplasty status SNOMED: 568479543 Assessment/Plan: telemetry monitoring psychiatry evaluation iv fluids check electrolytes symptomatic treatment dvt prophylaxis Ernst Lopez MD May 23, 2019 11:29
[2019-05-23] MEDS ORDERED: Miralax 17gm pkt ORAL PRN (11:30)
[2019-05-23] MEDS ORDERED: LORazepam Inj 2mg/ml 1ml IV PRN (11:30)
--- NOTE | 2019-05-23 11:58 | Diagnostic Imaging Report ---
Indication: Cough Technique: One view of the chest Comparison: January 28, 2018 18 Findings: Heart is borderline enlarged. Lungs and pleural spaces are clear. Findings are unchanged Impression: Borderline cardiomegaly. No acute process
--- NOTE | 2019-05-23 14:19 | Cardiac Electrophysiology PN ---
Subjective Subjective [id number] Objective Last 24 Hour Vital Signs Date Time Temp Pulse Resp B/P (MAP) Pulse Ox O2 Delivery O2 Flow Rate FiO2 05/23/19 12:29 Room Air 05/23/19 12:00 75 05/23/19 11:00 98.8 80 18 115/73 (87) 95 05/23/19 10:38 97.7 95 14 126/85 100 Room Air 05/23/19 10:15 97 14 100 Room Air 05/23/19 10:00 96 14 97 Room Air 05/23/19 09:45 92 18 100 Room Air 05/23/19 09:30 92 17 98 Room Air 05/23/19 09:15 90 20 96 Room Air 05/23/19 09:00 97.7 95 15 138/89 97 Room Air 05/23/19 09:00 96 15 97 Room Air 05/23/19 08:45 88 17 100 Room Air 05/23/19 08:30 95 15 98 Room Air 05/23/19 08:00 97.7 95 15 142/80 98 Room Air 05/23/19 07:56 95 15 Room Air 05/23/19 07:44 97.7 102 14 126/79 (95) 97 Room Air Laboratory Tests Test 05/23/19 08:05 05/23/19 09:10 White Blood Count 15.8 K/UL (4.8-10.8) H Red Blood Count 4.85 M/UL (4.70-6.10) Hemoglobin 14.8 G/DL (14.2-18.0) Hematocrit 43.2 % (42.0-52.0) Mean Corpuscular Volume 89 FL (80-99) Mean Corpuscular Hemoglobin 30.6 PG (27.0-31.0) Mean Corpuscular Hemoglobin Concent 34.3 G/DL (32.0-36.0) Red Cell Distribution Width 12.8 % (11.6-14.8) Platelet Count 372 K/UL (150-450) Mean Platelet Volume 5.8 FL (6.5-10.1) L Neutrophils (%) (Auto) 73.0 % (45.0-75.0) Lymphocytes (%) (Auto) 19.7 % (20.0-45.0) L Monocytes (%) (Auto) 6.5 % (1.0-10.0) Eosinophils (%) (Auto) 0.1 % (0.0-3.0) Basophils (%) (Auto) 0.8 % (0.0-2.0) Sodium Level 139 MMOL/L (136-145) Potassium Level 4.0 MMOL/L (3.5-5.1) Chloride Level 103 MMOL/L (98-107) Carbon Dioxide Level 24 MMOL/L (21-32) Anion Gap 12 mmol/L (5-15) Blood Urea Nitrogen 42 mg/dL (7-18) H Creatinine 1.5 MG/DL (0.55-1.30) H Estimat Glomerular Filtration Rate 48.1 mL/min (>60) Glucose Level 123 MG/DL (74-106) H Calcium Level 9.3 MG/DL (8.5-10.1) Total Bilirubin 0.4 MG/DL (0.2-1.0) Aspartate Amino Transf (AST/SGOT) 19 U/L (15-37) Alanine Aminotransferase (ALT/SGPT) 19 U/L (12-78) Alkaline Phosphatase 83 U/L (46-116) Total Protein 8.6 G/DL (6.4-8.2) H Albumin 4.2 G/DL (3.4-5.0) Globulin 4.4 g/dL Albumin/Globulin Ratio 1.0 (1.0-2.7) Salicylates Level 5.2 ug/mL (2.8-20) Acetaminophen Level < 2 MCG/ML (10-30) L Serum Alcohol < 3 mg/dL Urine Color Pale yellow Urine Appearance Clear Urine pH 5 (4.5-8.0) Urine Specific [place] 1.020 (1.005-1.035) Urine Protein 1+ (NEGATIVE) H Urine Glucose (UA) Negative (NEGATIVE) Urine Ketones 2+ (NEGATIVE) H Urine Blood 2+ (NEGATIVE) H Urine Nitrite Negative (NEGATIVE) Urine Bilirubin Negative (NEGATIVE) Urine Urobilinogen Normal MG/DL (0.0-1.0) Urine Leukocyte Esterase 1+ (NEGATIVE) H Urine RBC 2-4 /HPF (0 - 0) H Urine WBC 0-2 /HPF (0 - 0) Urine Squamous Epithelial Cells Occasional /LPF Urine Amorphous Sediment Few /LPF (NONE) H Urine Bacteria Few /HPF (NONE) Urine Opiates Screen Negative (NEGATIVE) Urine Barbiturates Screen Negative (NEGATIVE) Phencyclidine (PCP) Screen Negative (NEGATIVE) Urine Amphetamines Screen Negative (NEGATIVE) Urine Benzodiazepines Screen Negative (NEGATIVE) Urine Cocaine Screen Positive (NEGATIVE) H Urine Marijuana (THC) Screen Positive (NEGATIVE) H Microbiology Date/Time Source Procedure Growth Status 05/23/19 10:06 Rectum Received Prabhakar Echevarria MD May 23, 2019 14:19
--- NOTE | 2019-05-23 19:32 | NUR ---
NURSE NOTES: Received report from MEREDITH Schuster. Patient in bed resting. no apparent distress noted. will continue plan of care.
--- NOTE | 2019-05-23 19:32 | NUR ---
HAND-OFF: Report given to Fernando RN in bed. Endorsed the plan of care.
--- NOTE | 2019-05-23 21:15 | Consultation ---
DATE OF CONSULTATION: 05/23/2019 CARDIOLOGY CONSULTATION CONSULTING PHYSICIAN: Prabhakar Echevarria M.D. REFERRING PHYSICIAN: Callum Peña D.O. REASON FOR CONSULTATION: Management of hypertension and coronary artery disease. HISTORY OF PRESENT ILLNESS: The patient is a 59-year-old gentleman with history of hypertension and coronary artery disease with history of prior stent placement, was brought to the emergency room from home for overdose on 10 to 15 tablets of metoprolol 45 minutes prior to the arrival. The metoprolol was 25 mg daily for management of his blood pressure and coronary artery disease. He stated that he tried to wrap the on his neck and was recently at another psychiatric facility. The patient was admitted and a Cardiology consultation was obtained for further evaluation. At the time of my evaluation, the patient is altered and is not able to provide any information. REVIEW OF SYSTEMS: Cannot be obtained. PAST MEDICAL HISTORY: As mentioned above. MEDICATIONS: Include aspirin, Lipitor, Plavix, lisinopril, metoprolol, omeprazole, Risperdal, Zoloft, and Hytrin. PHYSICAL EXAMINATION: VITAL SIGNS: Show blood pressure of 115/73, pulse is 70, respirations 18, and he is afebrile. HEAD AND NECK: Shows no JVD or carotid bruits. LUNGS: Clear. CARDIOVASCULAR: Shows regular S1 and S2 with no gallop or murmur. ABDOMEN: Soft and nontender. EXTREMITIES: No pitting edema. DIAGNOSTIC DATA: EKG shows normal sinus rhythm and is a normal electrocardiogram. His telemetry strip also is in sinus rhythm. LABORATORY AND DIAGNOSTIC DATA: His labs show white count of 15.8, hemoglobin of 14.9, hematocrit of 43.2, and platelet count is 372,000. Sodium 139, potassium 4.0, BUN of 43, creatinine 1.5, and glucose of 48.1. Urine toxicology is positive for cocaine and marijuana. ASSESSMENT AND PLAN: 1. Beta-pavithra overdose in the patient with history of active cocaine use. In the previous admission, kept the patient off of beta-pavithra in view of active cocaine use. The patient fortunately has not had severe bradycardia and heart rate actually remains in 70s and 80s. We will watch the patient on telemetry. 2. History of coronary artery disease with prior stent placement. On Plavix 75 mg daily. 3. Hypertension. On lisinopril 40 mg daily. 4. Active cocaine use. 5. Psychosis. On Risperdal and Zoloft. Further evaluation by Psychiatry. Thank you very much, Dr. Peña, for allowing me to participate in the care of this patient. Please do not hesitate to contact me for any questions regarding my evaluation. Prabhakar Echevarria M.D. DR: ISMAEL JOB#: [id number] CC:
[2019-05-23] MEDS: Zolpidem 5mg tab ORAL PRN (22:13)
[2019-05-24] VITALS: BP 115/72
[2019-05-24 04:00] VITALS: BP 111/69
[2019-05-24 07:23] LABS: BASOPHILS % (AUTO) 0.9 % (0.0-2.0); EOSINOPHILS % (AUTO) 2.1 % (0.0-3.0); HEMATOCRIT 37.2 % (42.0-52.0); HEMOGLOBIN 12.7 G/DL (14.2-18.0); LYMPHOCYTES % (AUTO) 54.8 % (20.0-45.0); MEAN CORPUSCULAR VOLUME 89 FL (80-99); MONOCYTES % (AUTO) 6.9 % (1.0-10.0); NEUTROPHILS % (AUTO) 35.3 % (45.0-75.0); PLATELET COUNT 280 K/UL (150-450); RED BLOOD COUNT 4.17 M/UL (4.70-6.10); RED CELL DISTRIBUTION WIDTH 12.9 % (11.6-14.8); WHITE BLOOD COUNT 11.4 K/UL (4.8-10.8)
--- NOTE | 2019-05-24 07:30 | NUR ---
HAND-OFF: Report given to MEREDITH Garay.
--- NOTE | 2019-05-24 07:42 | NUR ---
NURSE NOTES: pt. in bed calm sleeping. Sitter is at bedside, order was confirmed by Dr. Yadav. pt on night monitor no signs cardiac or respiratory distress. Bed locked in lowest position. Call light within reach. Will continue to monitor pt. and follow plan of care.
[2019-05-24 08:10] LABS: ALANINE AMINOTRANSFERASE 17 U/L (12-78); ALBUMIN 3.2 G/DL (3.4-5.0); ALBUMIN/GLOBULIN RATIO 0.9 (1.0-2.7); ALKALINE PHOSPHATASE 66 U/L (46-116); ANION GAP 10 mmol/L (5-15); ASPARTATE AMINO TRANSFERASE 17 U/L (15-37); BILIRUBIN,TOTAL 0.3 MG/DL (0.2-1.0); BLOOD UREA NITROGEN 24 mg/dL (7-18); CALCIUM 8.1 MG/DL (8.5-10.1); CARBON DIOXIDE 23 MMOL/L (21-32); CHLORIDE 108 MMOL/L (98-107); CHOLESTEROL 273 MG/DL (< 200); HDL CHOLESTEROL 23 MG/DL (40-60); POTASSIUM 3.4 MMOL/L (3.5-5.1); SODIUM 141 MMOL/L (136-145); TRIGLYCERIDES 356 MG/DL (30-150)
--- NOTE | 2019-05-24 08:56 | Cardiac Electrophysiology PN ---
Assessment/Plan Assessment/Plan 1. Beta-pavithra overdose in the patient with history of active cocaine use. In the previous admission, kept the patient off of beta-pavithra in view of active cocaine use. The patient fortunately has not had severe bradycardia and heart rate actually remains in 70s and 80s and no hypotension. 2. History of coronary artery disease with prior stent placement. On Plavix 75 mg daily. 3. Hypertension. On lisinopril 40 mg daily. 4. Active cocaine use. 5. Psychosis. On Risperdal and Zoloft. Further evaluation by Psychiatry. DEAN RN Subjective Subjective Sleepy. In SR. No bradycardia or hypotension. Tox screen positive for Cocaine Objective Last 24 Hour Vital Signs Date Time Temp Pulse Resp B/P (MAP) Pulse Ox O2 Delivery O2 Flow Rate FiO2 05/24/19 04:00 98.1 67 24 111/69 (83) 95 05/24/19 04:00 67 05/24/19 00:00 97.9 90 24 115/72 (86) 95 05/24/19 00:00 90 05/23/19 21:00 Room Air 05/23/19 20:00 97.9 73 24 130/81 (97) 95 05/23/19 20:00 73 05/23/19 16:00 97.0 71 18 120/79 (93) 95 05/23/19 12:29 Room Air 05/23/19 12:00 75 05/23/19 11:00 98.8 80 18 115/73 (87) 95 05/23/19 10:38 97.7 95 14 126/85 100 Room Air 05/23/19 10:15 97 14 100 Room Air 05/23/19 10:00 96 14 97 Room Air 05/23/19 09:45 92 18 100 Room Air 05/23/19 09:30 92 17 98 Room Air 05/23/19 09:15 90 20 96 Room Air 05/23/19 09:00 97.7 95 15 138/89 97 Room Air 05/23/19 09:00 96 15 97 Room Air Intake and Output 05/23/19 05/24/19 18:59 06:59 Intake Total 1320 ml Balance 1320 ml Intake Oral 120 ml IV Total 1200 ml # Voids 2 2 # Bowel Movements 1 1 Laboratory Tests Test 05/23/19 09:10 05/23/19 15:05 05/24/19 05:40 Urine Color Pale yellow Urine Appearance Clear Urine pH 5 (4.5-8.0) Urine Specific [place] 1.020 (1.005-1.035) Urine Protein 1+ (NEGATIVE) H Urine Glucose (UA) Negative (NEGATIVE) Urine Ketones 2+ (NEGATIVE) H Urine Blood 2+ (NEGATIVE) H Urine Nitrite Negative (NEGATIVE) Urine Bilirubin Negative (NEGATIVE) Urine Urobilinogen Normal MG/DL (0.0-1.0) Urine Leukocyte Esterase 1+ (NEGATIVE) H Urine RBC 2-4 /HPF (0 - 0) H Urine WBC 0-2 /HPF (0 - 0) Urine Squamous Epithelial Cells Occasional /LPF Urine Amorphous Sediment Few /LPF (NONE) H Urine Bacteria Few /HPF (NONE) Urine Opiates Screen Negative (NEGATIVE) Urine Barbiturates Screen Negative (NEGATIVE) Phencyclidine (PCP) Screen Negative (NEGATIVE) Urine Amphetamines Screen Negative (NEGATIVE) Urine Benzodiazepines Screen Negative (NEGATIVE) Urine Cocaine Screen Positive (NEGATIVE) H Urine Marijuana (THC) Screen Positive (NEGATIVE) H Acetaminophen Level < 2 MCG/ML (10-30) L White Blood Count 11.4 K/UL (4.8-10.8) H Red Blood Count 4.17 M/UL (4.70-6.10) L Hemoglobin 12.7 G/DL (14.2-18.0) L Hematocrit 37.2 % (42.0-52.0) L Mean Corpuscular Volume 89 FL (80-99) Mean Corpuscular Hemoglobin 30.4 PG (27.0-31.0) Mean Corpuscular Hemoglobin Concent 34.0 G/DL (32.0-36.0) Red Cell Distribution Width 12.9 % (11.6-14.8) Platelet Count 280 K/UL (150-450) Mean Platelet Volume 5.8 FL (6.5-10.1) L Neutrophils (%) (Auto) 35.3 % (45.0-75.0) L Lymphocytes (%) (Auto) 54.8 % (20.0-45.0) H Monocytes (%) (Auto) 6.9 % (1.0-10.0) Eosinophils (%) (Auto) 2.1 % (0.0-3.0) Basophils (%) (Auto) 0.9 % (0.0-2.0) Sodium Level 141 MMOL/L (136-145) Potassium Level 3.4 MMOL/L (3.5-5.1) L Chloride Level 108 MMOL/L (98-107) H Carbon Dioxide Level 23 MMOL/L (21-32) Anion Gap 10 mmol/L (5-15) Blood Urea Nitrogen 24 mg/dL (7-18) H Creatinine 1.0 MG/DL (0.55-1.30) Estimat Glomerular Filtration Rate > 60 mL/min (>60) Glucose Level 121 MG/DL (74-106) H Calcium Level 8.1 MG/DL (8.5-10.1) L Total Bilirubin 0.3 MG/DL (0.2-1.0) Aspartate Amino Transf (AST/SGOT) 17 U/L (15-37) Alanine Aminotransferase (ALT/SGPT) 17 U/L (12-78) Alkaline Phosphatase 66 U/L (46-116) Troponin I Pending Total Protein 6.7 G/DL (6.4-8.2) Albumin 3.2 G/DL (3.4-5.0) L Globulin 3.5 g/dL Albumin/Globulin Ratio 0.9 (1.0-2.7) L Triglycerides Level 356 MG/DL (30-150) H Cholesterol Level 273 MG/DL (< 200) H LDL Cholesterol 173 mg/dL (<100) H HDL Cholesterol 23 MG/DL (40-60) L Cholesterol/HDL Ratio 11.9 (3.3-4.4) H Thyroid Stimulating Hormone (TSH) 1.077 uiU/mL (0.358-3.740) Free Thyroxine 0.84 NG/DL (0.76-1.46) Microbiology Date/Time Source Procedure Growth Status 05/23/19 10:06 Rectum Received Objective HEAD AND NECK: No JVD or carotid bruits. LUNGS: Clear. CARDIOVASCULAR: Shows regular S1 and S2 with no gallop or murmur. ABDOMEN: Soft and nontender. EXTREMITIES: No pitting edema. Prabhakar Echevarria MD May 24, 2019 08:56
[2019-05-24 09:00] VITALS: BP 108/71
[2019-05-24] MEDS ORDERED: Lisinopril 20mg tab ORAL SCH (09:00)
[2019-05-24] MEDS ORDERED: Sertraline 50mg tab ORAL SCH (09:00)
[2019-05-24] MEDS: Lisinopril 20mg tab ORAL SCH ×2 (09:00→09:19)
--- NOTE | 2019-05-24 10:42 | Pulmonology Progress Note ---
Assessment/Plan Problems: (1) Drug overdose (2) COPD (chronic obstructive pulmonary disease) (3) Tobacco abuse (4) Cocaine abuse (5) CLAUDY (acute kidney injury) (6) Schizo-affective psychosis (7) Suicidal overdose (8) CAD S/P percutaneous coronary angioplasty Assessment/Plan add paxil and xanax prn Heart rate better, no bradycardia might go to med/surg awaiting psych evaluation. Subjective Interval Events: c/o severe anxiety Constitutional: Reports: no symptoms Allergies: Coded Allergies: CODEINE (Verified Adverse Reaction, Intermediate, 10/29/15) Objective Last 24 Hour Vital Signs Date Time Temp Pulse Resp B/P (MAP) Pulse Ox O2 Delivery O2 Flow Rate FiO2 05/24/19 09:19 108/71 05/24/19 09:00 98.0 71 18 108/71 (83) 95 05/24/19 08:00 67 05/24/19 04:00 98.1 67 24 111/69 (83) 95 05/24/19 04:00 67 05/24/19 00:00 97.9 90 24 115/72 (86) 95 05/24/19 00:00 90 05/23/19 21:00 Room Air 05/23/19 20:00 97.9 73 24 130/81 (97) 95 05/23/19 20:00 73 05/23/19 16:00 97.0 71 18 120/79 (93) 95 05/23/19 12:29 Room Air 05/23/19 12:00 75 05/23/19 11:00 98.8 80 18 115/73 (87) 95 Intake and Output 05/23/19 05/24/19 19:00 07:00 Intake Total 1320 ml Balance 1320 ml Intake Oral 120 ml IV Total 1200 ml # Voids 2 2 # Bowel Movements 1 1 General Appearance: WD/WN Respiratory/Chest: chest wall non-tender, lungs clear Cardiovascular: normal peripheral pulses, normal rate Abdomen: normal bowel sounds, no organomegaly Microbiology Date/Time Source Procedure Growth Status 05/23/19 10:06 Rectum Received Laboratory Tests 05/23/19 15:05: Acetaminophen Level < 2L 05/24/19 05:40: White Blood Count 11.4H, Red Blood Count 4.17L, Hemoglobin 12.7L, Hematocrit 37.2L, Mean Corpuscular Volume 89, Mean Corpuscular Hemoglobin 30.4, Mean Corpuscular Hemoglobin Concent 34.0, Red Cell Distribution Width 12.9, Platelet Count 280, Mean Platelet Volume 5.8L, Neutrophils (%) (Auto) 35.3L, Lymphocytes (%) (Auto) 54.8H, Monocytes (%) (Auto) 6.9, Eosinophils (%) (Auto) 2.1, Basophils (%) (Auto) 0.9, Sodium Level 141, Potassium Level 3.4L, Chloride Level 108H, Carbon Dioxide Level 23, Anion Gap 10, Blood Urea Nitrogen 24H, Creatinine 1.0, Estimat Glomerular Filtration Rate > 60, Glucose Level 121H, Calcium Level 8.1L, Total Bilirubin 0.3, Aspartate Amino Transf (AST/SGOT) 17, Alanine Aminotransferase (ALT/SGPT) 17, Alkaline Phosphatase 66, Troponin I 0.015, Total Protein 6.7, Albumin 3.2L, Globulin 3.5, Albumin/Globulin Ratio 0.9L, Triglycerides Level 356H, Cholesterol Level 273H, LDL Cholesterol 173H, HDL Cholesterol 23L, Cholesterol/HDL Ratio 11.9H, Thyroid Stimulating Hormone ( TSH) 1.077, Free Thyroxine 0.84 Current Medications Medications (Trade) Dose Ordered Sig/Mauricio Route PRN Reason Start Time Stop Time Status Last Admin Dose Admin Acetaminophen (Tylenol) 650 mg Q4H PRN ORAL fever 05/23/19 11:30 06/22/19 11:29 Clopidogrel Bisulfate (Plavix) 75 mg DAILY ORAL 05/24/19 09:00 06/23/19 08:59 05/24/19 09:08 Dextrose (Dextrose 50%) 25 ml Q30MIN PRN IV Hypoglycemia 05/23/19 11:30 06/22/19 11:29 Dextrose (Dextrose 50%) 50 ml Q30MIN PRN IV Hypoglycemia 05/23/19 11:30 06/22/19 11:29 Lisinopril (Prinivil) 40 mg DAILY ORAL 05/24/19 09:00 06/23/19 08:59 Lorazepam (Ativan 2mg/ml 1ml) 0.5 mg Q4H PRN IV For Anxiety 05/23/19 11:30 05/30/19 11:29 Morphine Sulfate (Morphine Sulfate) 1 mg Q4H PRN IVP PAIN 4-10 05/23/19 11:30 05/30/19 11:29 Ondansetron HCl (Zofran) 4 mg Q6H PRN IVP Nausea & Vomiting 05/23/19 11:30 06/22/19 11:29 Polyethylene Glycol (Miralax) 17 gm HSPRN PRN ORAL Constipation 05/23/19 11:30 06/22/19 11:29 Risperidone (RisperDAL) 2 mg BID ORAL 05/23/19 18:00 06/22/19 17:59 05/24/19 09:08 Sertraline HCl (Zoloft) 25 mg DAILY ORAL 05/24/19 09:00 06/23/19 08:59 05/24/19 09:08 Sodium Chloride 1,000 ml @ 75 mls/hr [id number] IV 05/23/19 14:30 06/22/19 14:29 05/24/19 09:08 Terazosin HCl (Hytrin) 5 mg BEDTIME ORAL 05/23/19 21:00 06/22/19 20:59 05/23/19 20:38 Zolpidem Tartrate (Ambien) 5 mg HSPRN PRN ORAL Insomnia 05/23/19 11:30 05/30/19 11:29 05/23/19 22:13 Ernst Lopez MD May 24, 2019 10:42
[2019-05-24] MEDS: ALPRAZolam 0.25mg tab ORAL SCH ×3 (11:47→17:14)
[2019-05-24 12:00] VITALS: BP 130/79
--- NOTE | 2019-05-24 13:46 | NUR ---
CASE MANAGEMENT:REVIEW 59 YR OLD MALE BIBA FROM HOME CC: SUICIDAL PMH: HTN SI:OVERDOSE ON BP MEDICATION; 97.7 102 14 126/79 97% RA BUN 42; CR 1.5; GFR 48.1; WBC 11.4; RBC 4.17; H/H 12.7/37.2; BG 123 MARIJUANA +; COCAINE + IS: IVF NS BOLUS X2 IV GLUCAGON X1 PLAN: PSYCHIATRY EVAL PLAN: PSYCHIATRY EVAL : TO TELE UNIT DCP: TO RETURN HOME
[2019-05-24] MEDS: PARoxetine 20mg tab ORAL SCH (14:34)
--- NOTE | 2019-05-24 15:17 | NUR ---
Social Service Note ARBEN met with patient to assess for suicidal ideations. Patient states he is in "bad shape" and feeling really depressed. Patient was transferred to [facility] on last admission 05/02/19. Patient states facility encouraged him to stay in patient but patient declined and returned home. Patient states he wasn't taking his medication as ordered. Patient unable to verbalize his stressors. Patient shows poor coping skills and is not utilizing the tools provided throughout multiple inpatient psych hospitalizations. SW discussed IOP programs. Patient stated he didn't know and didn't want to discuss outpatient programs at this time. Patient stated he would like to return to [facility] and is willing to go voluntary. SW informed Dr. Yadav. Patient denies current suicidal ideations. Patient denies substance abuse. Patient states he doesn't have an emergency contact. Will continue to monitor and assist as needed.
--- NOTE | 2019-05-24 15:41 | Consultation ---
Consult Note Consult Note his is a 59-year-old male, who was admitted for a suicidal attempt by ingesting approximately 15 metoprolol. The patient became lethargic, possible loss of consciousness, came to [facility], and was found to have leukocytosis , ID Cons was requested for eval of leukocytosis REVIEW OF SYSTEMS: poor historian , occ cough PAST MEDICAL HISTORY: COPD, hypertension, CAD, CLAUDY. PAST SURGICAL HISTORY: None. MEDICATIONS: no AB Rx ALLERGIES: Codeine. SOCIAL HISTORY: Positive smoking. No alcohol. No intravenous drug abuse. FAMILY HISTORY: Noncontributory. PHYSICAL EXAMINATION: GENERAL: Slightly tired in bed, oriented x3, in no acute distress. VITAL SIGNS: Temperature is 98 degrees, pulse rate 81, respiratory rate 18, blood pressure 108/71. CARDIOVASCULAR: No murmurs. LUNGS: no wheeze or crackles ABDOMEN: Bowel sounds positive. Nontender. Nondistended. EXTREMITIES: Show no cyanosis, clubbing, or edema. NEUROLOGIC: The patient moves all extremities, slightly weak. LABORATORY AND DIAGNOSTIC DATA: Labs at this time show white count 11.4, hemoglobin and hematocrit 12/37, otherwise CBC is normal. BMP shows potassium 3.4, chloride 108, BUN and creatinine initially 42/1.5, now 24/1. Glucose 121. Troponin 0.015. Albumin 3.2. Urine toxicology positive for cocaine and marijuana. Urinalysis, 1+ leukocyte esterase. Assessment/Plan ASSESSMENT: Leukocytosis ( m/l due to acute stress) doubt pnem at this time occ cough , COPD Renal insufficiency. Suicidal attempt. Drug abuse. COPD. Hypertension. CAD. CLAUDY. Overdose on metoprolol. PLAN: Monitor pt off of AB Rx Monitor CBC, BMP Monitor CXR Monitor Blood and Urine Cx Thank you Gilson Cho MD May 24, 2019 15:41
[2019-05-24 16:00] VITALS: BP 118/71
--- NOTE | 2019-05-24 19:35 | NUR ---
NURSE NOTES: Dr Franco ordered protonix pt complaining of stomach pain. Also doctor ordered 40meq of Kdur for pt. Potassium was low today.
--- NOTE | 2019-05-24 19:38 | NUR ---
HAND-OFF: Report given to Omer/ MEREDITH.
--- NOTE | 2019-05-24 19:38 | NUR ---
NURSE NOTES: Received report from MEREDITH Garay. patient in bed, resting. No acute distress noted. will continue plan of care.
[2019-05-24] MEDS: Morphine Sulfate 2mg/ml Inj(IV/IM USE ONLY) IVP PRN (19:40)
[2019-05-24 20:00] VITALS: BP 133/90
--- NOTE | 2019-05-24 20:45 | Consultation ---
DATE OF CONSULTATION: 05/24/2019 ADDENDUM The patient received 20 minutes of cognitive behavioral therapy to identify his automatic negative thoughts, help him to convert his negative thoughts to more positive thoughts to reduce depression, anxiety, and mood lability. A 20 minutes of cognitive behavioral therapy provided to help him more adaptive behavioral pattern. Cameron Yadav M.D. DR: CECILIA JOB#: [id number] CC:
[2019-05-24] MEDS: Zolpidem 5mg tab ORAL PRN (22:26)
[2019-05-25] VITALS: BP 129/75
--- NOTE | 2019-05-25 01:15 | History and Physical Report ---
DATE OF ADMISSION: 05/23/2019 CONSULTANTS: 1. Cameron Yadav M.D. 2. Toan Lazaro M.D. 3. Prabhakar Echevarria M.D. 4. Ernst Lopez M.D. CHIEF COMPLAINT: Overdose on metoprolol, renal insufficiency, and suicidal attempt. BRIEF HISTORY: This is a 59-year-old male, who lives at home, yesterday had a suicidal attempt by ingesting approximately 15 metoprolol. The patient became lethargic, possible loss of consciousness, came to [facility], diagnosed with the above, admitted to telemetry for further care. Currently, feeling a little bit better, slightly tired in bed, no complaint. REVIEW OF SYSTEMS: No chest pain. No shortness of breath. No nausea, vomiting, or diarrhea. PAST MEDICAL HISTORY: Include COPD, hypertension, CAD, CLAUDY. PAST SURGICAL HISTORY: None. MEDICATIONS: Include pantoprazole, paroxetine, potassium, alprazolam, lisinopril, , terazosin, morphine, , Zolpidem. ALLERGIES: Codeine. SOCIAL HISTORY: Positive smoking. No alcohol. No intravenous drug abuse. FAMILY HISTORY: Noncontributory. PHYSICAL EXAMINATION: GENERAL: Slightly tired in bed, oriented x3, in no acute distress. VITAL SIGNS: Temperature is 98 degrees, pulse rate 81, respiratory rate 18, blood pressure 108/71. CARDIOVASCULAR: No murmurs. LUNGS: Distant and clear. ABDOMEN: Bowel sounds positive. Nontender. Nondistended. EXTREMITIES: Show no cyanosis, clubbing, or edema. NEUROLOGIC: The patient moves all extremities, slightly weak. LABORATORY AND DIAGNOSTIC DATA: Labs at this time show white count 11.4, hemoglobin and hematocrit 12/37, otherwise CBC is normal. BMP shows potassium 3.4, chloride 108, BUN and creatinine initially 42/1.5, now 24/1. Glucose 121. Troponin 0.015. Albumin 3.2. Urine toxicology positive for cocaine and marijuana. Urinalysis, 1+ leukocyte esterase. ASSESSMENT: 1. Renal insufficiency. 2. Suicidal attempt. 3. Drug abuse. 4. COPD. 5. Hypertension. 6. CAD. 7. CLAUDY. 8. Overdose on metoprolol. 9. UTI. PLAN: 1. Continue premeds. 2. Antibiotics per Infectious Disease. 3. Detox. 4. Dietary to follow. 5. IV fluids. 6. Blood pressure control. 7. PT, dietary evaluation. 8. CBC, BMP in the morning. Callum Peña D.O. DR: NUBIA JOB#: [id number] CC:
[2019-05-25 04:00] VITALS: BP 134/76
[2019-05-25 07:13] LABS: BASOPHILS % (AUTO) 0.7 % (0.0-2.0); EOSINOPHILS % (AUTO) 2.5 % (0.0-3.0); HEMATOCRIT 39.2 % (42.0-52.0); HEMOGLOBIN 13.4 G/DL (14.2-18.0); MEAN CORPUSCULAR VOLUME 90 FL (80-99); MONOCYTES % (AUTO) 7.4 % (1.0-10.0); NEUTROPHILS % (AUTO) 45.4 % (45.0-75.0); PLATELET COUNT 263 K/UL (150-450); RED BLOOD COUNT 4.34 M/UL (4.70-6.10); RED CELL DISTRIBUTION WIDTH 11.6 % (11.6-14.8); WHITE BLOOD COUNT 12.2 K/UL (4.8-10.8)
[2019-05-25 07:25] LABS: ANION GAP 10 mmol/L (5-15); BLOOD UREA NITROGEN 17 mg/dL (7-18); CALCIUM 8.2 MG/DL (8.5-10.1); CARBON DIOXIDE 22 MMOL/L (21-32); CHLORIDE 108 MMOL/L (98-107); CREATININE 0.9 MG/DL (0.55-1.30); POTASSIUM 3.9 MMOL/L (3.5-5.1); SODIUM 140 MMOL/L (136-145)
--- NOTE | 2019-05-25 07:30 | NUR ---
HAND-OFF: Report given to MEREDITH Garay.
--- NOTE | 2019-05-25 07:49 | NUR ---
NURSE NOTES: pt in bed resting, advised pt food tray is at bedside. Pt on secured entrance monitor no signs of cardiac or respiratory distress. Sitter is at bedside. Call light within reach and bed in lowest position. Will continue plan of care.
--- NOTE | 2019-05-25 08:15 | Progress Note ---
DATE: 05/25/2019 SUBJECTIVE: This is a 59-year-old male patient, came to the hospital due to overdose. He has got a lot of mood lability, confusion, and disorganized thought process. There is some auditory hallucinations and paranoid delusions as well. MENTAL STATUS EXAMINATION: This is a 59-year-old male. Appearance is disheveled. Attitude, irritable and agitated. Affect, guarded and restricted. Intellect poor. Mood, depressed and anxious. Motor activity, psychomotor agitation. Attention span is poor. Orientation x2. Speech is pressured. Thought process, disorganized and illogical. Insight and judgment is poor. DIAGNOSIS: Paranoid schizophrenia with acute exacerbation. PLAN: Treat him with Risperdal 2 mg twice a day, Paxil 20 mg daily, p.o. three times a day. A 20 minutes of cognitive behavioral therapy was provided to help him identify automatic negative thoughts and help him convert negative thoughts to more positive thoughts to reduce depression, anxiety, and mood lability. A 20 minutes of cognitive behavioral therapy. Transfer to [facility] psychiatric unit once he is medically cleared. Continue one-to-one observation. Cameron Yadav M.D. DR: LIUDMILA JOB#: [id number] CC:
--- NOTE | 2019-05-25 08:40 | General Progress Note ---
Assessment/Plan Problem List: (1) COPD (chronic obstructive pulmonary disease) ICD Codes: J44.9 - Chronic obstructive pulmonary disease, unspecified SNOMED: 44568110 (2) Leukocytosis ICD Codes: D72.829 - Elevated white blood cell count, unspecified SNOMED: 987342403, 378309772 (3) Drug overdose ICD Codes: T50.901A - Poisoning by unspecified drugs, medicaments and biological substances, accidental (unintentional), initial encounter SNOMED: 58914418 (4) Tobacco abuse ICD Codes: Z72.0 - Tobacco use SNOMED: 78146353, 630194068 (5) Suicidal overdose ICD Codes: T50.902A - Poisoning by unspecified drugs, medicaments and biological substances, intentional self-harm, initial encounter SNOMED: 94983228, 07348366 (6) Suicidal behavior ICD Codes: R45.851 - Suicidal ideations SNOMED: 646499389 (7) Cocaine abuse ICD Codes: F14.10 - Cocaine abuse, uncomplicated SNOMED: 47380972 (8) CLAUDY (acute kidney injury) ICD Codes: N17.9 - Acute kidney failure, unspecified SNOMED: 7612892, 44997551 Status: stable, progressing Assessment/Plan: detox bp control cbc bmp am psyc transfer if clear Subjective Constitutional: Reports: weakness Allergies: Coded Allergies: CODEINE (Verified Adverse Reaction, Intermediate, 10/29/15) All Systems: reviewed and negative except above Subjective sleepy in bed Objective Last 24 Hour Vital Signs Date Time Temp Pulse Resp B/P (MAP) Pulse Ox O2 Delivery O2 Flow Rate FiO2 05/25/19 04:00 97.1 63 20 134/76 (95) 95 05/25/19 04:00 63 05/25/19 00:00 72 05/25/19 00:00 98.3 72 18 129/75 (93) 96 05/24/19 21:00 Room Air 05/24/19 20:00 97.2 83 18 133/90 (104) 94 05/24/19 20:00 83 05/24/19 16:00 97.5 78 18 118/71 (87) 97 05/24/19 16:00 74 05/24/19 12:00 97.7 72 20 130/79 (96) 95 05/24/19 12:00 74 05/24/19 09:19 108/71 05/24/19 09:00 Room Air 05/24/19 09:00 98.0 71 18 108/71 (83) 95 Intake and Output 05/24/19 05/25/19 18:59 06:59 Intake Total 240 ml 1425 ml Output Total 1550 ml Balance -1310 ml 1425 ml Intake Oral 240 ml 600 ml IV Total 825 ml Output Urine Total 1550 ml # Voids 2 # Bowel Movements 1 2 Laboratory Tests 05/25/19 05:27: White Blood Count 12.2H, Red Blood Count 4.34L, Hemoglobin 13.4L, Hematocrit 39.2L, Mean Corpuscular Volume 90, Mean Corpuscular Hemoglobin 30.8, Mean Corpuscular Hemoglobin Concent 34.2, Red Cell Distribution Width 11.6, Platelet Count 263, Mean Platelet Volume 6.2L, Neutrophils (%) (Auto) 45.4, Lymphocytes ( %) (Auto) 44.0, Monocytes (%) (Auto) 7.4, Eosinophils (%) (Auto) 2.5, Basophils (%) (Auto) 0.7, Sodium Level 140, Potassium Level 3.9, Chloride Level 108H, Carbon Dioxide Level 22, Anion Gap 10, Blood Urea Nitrogen 17, Creatinine 0.9, Estimat Glomerular Filtration Rate > 60, Glucose Level 101, Calcium Level 8.2L Height (Feet): 5 Height (Inches): 10.00 Weight (Pounds): 190 General Appearance: lethargic EENT: normal ENT inspection Neck: normal alignment Cardiovascular: normal peripheral pulses, normal rate, regular rhythm Respiratory/Chest: chest wall non-tender, lungs clear, normal breath sounds Abdomen: normal bowel sounds, non tender, soft Extremities: normal inspection Edema: no edema noted Arm (L), no edema noted Arm (R), no edema noted Leg (L), no edema noted Leg (R), no edema noted Pedal (L), no edema noted Pedal (R), no edema noted Generalized Neurologic: motor weakness Skin: normal pigmentation, warm/dry Callum Peña DO May 25, 2019 08:40
[2019-05-25 08:49] VITALS: BP 130/74
[2019-05-25] MEDS: PARoxetine 20mg tab ORAL SCH (09:08)
[2019-05-25] MEDS: ALPRAZolam 0.25mg tab ORAL SCH ×3 (09:10→18:14)
--- NOTE | 2019-05-25 10:21 | NUR ---
SS note This SW faxed referral to [facility] (patient is voluntary); pending evaluation at this time.
--- NOTE | 2019-05-25 10:32 | Pulmonology Progress Note ---
Assessment/Plan Problems: (1) Drug overdose (2) COPD (chronic obstructive pulmonary disease) (3) Tobacco abuse (4) Cocaine abuse (5) CLAUDY (acute kidney injury) (6) Schizo-affective psychosis (7) Suicidal overdose (8) CAD S/P percutaneous coronary angioplasty Assessment/Plan add paxil and xanax prn Heart rate better, no bradycardia might go to med/surg awaiting psych evaluation. may go to med/surg will need psychiatric hospitalization Subjective ROS Limited/Unobtainable: No Interval Events: no new complains Constitutional: Reports: no symptoms Allergies: Coded Allergies: CODEINE (Verified Adverse Reaction, Intermediate, 10/29/15) Objective Last 24 Hour Vital Signs Date Time Temp Pulse Resp B/P (MAP) Pulse Ox O2 Delivery O2 Flow Rate FiO2 05/25/19 09:00 Room Air 05/25/19 08:49 98.3 74 21 130/74 (92) 99 05/25/19 08:00 67 05/25/19 04:00 97.1 63 20 134/76 (95) 95 05/25/19 04:00 63 05/25/19 00:00 72 05/25/19 00:00 98.3 72 18 129/75 (93) 96 05/24/19 21:00 Room Air 05/24/19 20:00 97.2 83 18 133/90 (104) 94 05/24/19 20:00 83 05/24/19 16:00 97.5 78 18 118/71 (87) 97 05/24/19 16:00 74 05/24/19 12:00 97.7 72 20 130/79 (96) 95 05/24/19 12:00 74 Intake and Output 05/24/19 05/25/19 18:59 06:59 Intake Total 240 ml 1425 ml Output Total 1550 ml Balance -1310 ml 1425 ml Intake Oral 240 ml 600 ml IV Total 825 ml Output Urine Total 1550 ml # Voids 2 # Bowel Movements 1 2 General Appearance: WD/WN HEENT: normocephalic, anicteric Respiratory/Chest: chest wall non-tender, lungs clear Cardiovascular: normal peripheral pulses, normal rate Abdomen: normal bowel sounds, soft, non tender Microbiology Date/Time Source Procedure Growth Status 05/23/19 10:06 Nasal Nares MRSA Culture - Final NO METHICILLIN RESISTANT STAPH AUREUS... Complete 05/24/19 11:35 Urine,Clean Catch Urine Culture - Preliminary NO GROWTH Resulted 05/23/19 10:06 Rectum - Final NO CARBAPENEM-RESISTANT ENTEROBACTERI... Complete 05/23/19 10:06 Rectum VRE Culture - Final NO VANCOMYCIN RESISTANT ENTEROCOCCUS ... Complete Laboratory Tests 05/25/19 05:27: White Blood Count 12.2H, Red Blood Count 4.34L, Hemoglobin 13.4L, Hematocrit 39.2L, Mean Corpuscular Volume 90, Mean Corpuscular Hemoglobin 30.8, Mean Corpuscular Hemoglobin Concent 34.2, Red Cell Distribution Width 11.6, Platelet Count 263, Mean Platelet Volume 6.2L, Neutrophils (%) (Auto) 45.4, Lymphocytes ( %) (Auto) 44.0, Monocytes (%) (Auto) 7.4, Eosinophils (%) (Auto) 2.5, Basophils (%) (Auto) 0.7, Sodium Level 140, Potassium Level 3.9, Chloride Level 108H, Carbon Dioxide Level 22, Anion Gap 10, Blood Urea Nitrogen 17, Creatinine 0.9, Estimat Glomerular Filtration Rate > 60, Glucose Level 101, Calcium Level 8.2L Current Medications Medications (Trade) Dose Ordered Sig/Mauricio Route PRN Reason Start Time Stop Time Status Last Admin Dose Admin Acetaminophen (Tylenol) 650 mg Q4H PRN ORAL fever 05/23/19 11:30 06/22/19 11:29 Alprazolam (Xanax) 0.25 mg THREE TIMES A DAY ORAL 05/24/19 11:00 05/31/19 10:59 05/25/19 09:10 Clopidogrel Bisulfate (Plavix) 75 mg DAILY ORAL 05/24/19 09:00 06/23/19 08:59 05/25/19 09:09 Dextrose (Dextrose 50%) 25 ml Q30MIN PRN IV Hypoglycemia 05/23/19 11:30 06/22/19 11:29 Dextrose (Dextrose 50%) 50 ml Q30MIN PRN IV Hypoglycemia 05/23/19 11:30 06/22/19 11:29 Lisinopril (Prinivil) 40 mg DAILY ORAL 05/24/19 09:00 06/23/19 08:59 Lorazepam (Ativan 2mg/ml 1ml) 0.5 mg Q4H PRN IV For Anxiety 05/23/19 11:30 05/30/19 11:29 Morphine Sulfate (Morphine Sulfate) 1 mg Q4H PRN IVP PAIN 4-10 05/23/19 11:30 05/30/19 11:29 05/24/19 19:40 Ondansetron HCl (Zofran) 4 mg Q6H PRN IVP Nausea & Vomiting 05/23/19 11:30 06/22/19 11:29 Pantoprazole (Protonix) 40 mg DAILY ORAL 05/24/19 14:15 06/23/19 14:14 05/25/19 09:08 Paroxetine HCl (Paxil) 20 mg DAILY ORAL 05/24/19 14:00 06/23/19 13:59 05/25/19 09:08 Polyethylene Glycol (Miralax) 17 gm HSPRN PRN ORAL Constipation 05/23/19 11:30 06/22/19 11:29 Risperidone (RisperDAL) 2 mg BID ORAL 05/23/19 18:00 06/22/19 17:59 05/25/19 09:08 Sodium Chloride 1,000 ml @ 75 mls/hr [id number] IV 05/23/19 14:30 06/22/19 14:29 05/25/19 02:08 Terazosin HCl (Hytrin) 5 mg BEDTIME ORAL 05/23/19 21:00 06/22/19 20:59 05/24/19 20:41 Zolpidem Tartrate (Ambien) 5 mg HSPRN PRN ORAL Insomnia 05/23/19 11:30 05/30/19 11:29 05/24/19 22:26 Ernst Lopez MD May 25, 2019 10:32
--- NOTE | 2019-05-25 11:23 | NUR ---
CASE MANAGEMENT:REVIEW 05/25/19 SI:OVERDOSE ON BP MEDICATION; 98.3 74 21 130/74 99% RA WBC 12.2; RBC 4.34; H/H 13.4/39.2; CA+8.2 IS: PROTONIX PO QD PAXIL PO QD XANAX PO QID PLAVIX PO QD HYTRIN PO HS RISPERDAL PO BID AMBIEN PO HS/PRN IVF @75HR IV MORPHINE SULFATE Q4/PRN PLAN: PSYCHIATRY EVAL PLAN: SS REFERRAL TO [facility] ( PATIENT IS VOLUNTARY) : TO TELE UNIT DCP: TO RETURN HOME
[2019-05-25 12:00] VITALS: BP 136/86
--- NOTE | 2019-05-25 12:45 | Consultation ---
DATE OF CONSULTATION: 05/24/2019 NOTE: POOR AUDIO CONSULTING PHYSICIAN: Cameron Yadav M.D. HISTORY OF PRESENT ILLNESS: This is a male patient who came to the hospital essentially complaining of depression, anxiety, and mood lability. The patient states he came to the hospital because he had a potential overdose. He is very confused and disorganized. The patient actually came into the ER and was admitted to the hospital because he became suicidal ideation. He and overdosed medications to hurt himself. He . He has overwhelming feelings of helplessness, hopelessness, low energy, poor appetite, loss of interest in activity, wants him medically cleared. He has feelings of helplessness, hopelessness. He does have a psychiatric history and history of mood lability. MEDICAL HISTORY: Hypertension. ALLERGIES: To codeine. PSYCHOTHERAPY MEDICATIONS ON ADMISSION: Apparently, the patient is on Risperdal 2 mg twice a day, Zoloft 25 mg daily, Paxil 200 mg daily, Ativan 0.5 as needed, Xanax 3 times a day, and Ambien. SUBSTANCE ABUSE HISTORY: He denies any drug or alcohol use at this time. FAMILY PSYCHIATRIC HISTORY: Denies. PAIN ASSESSMENT: 11/05 pain. DEVELOPMENTAL PROBLEMS: Denies. SOCIAL HISTORY: The patient lives in a private residence. Financially supported by [employer] and Medicare. PSYCHIATRIC HISTORY: History of schizoaffective, bipolar type, rule out bipolar, rule out paranoid schizophrenia. He has had multiple psychiatric admissions recently at [facility]. STRENGTHS: He is motivated to get better and he has a place to live. WEAKNESSES: He is impulsive. Minimal support system. MENTAL STATUS EXAMINATION: This is a 59-year-old male. His appearance is disheveled. His attitude is irritable and agitated. His affect is labile. Intellect is poor because he does not know current events, does not know last four presidents. Mood, depressed and anxious. Motor activity, psychomotor agitation. Attention span is poor because he cannot do serial sevens or spell world backwards. Orientation x2. He is oriented to person and place, not to time and situation. Speech is pressured, nonsensical. Thought process, disorganized and illogical. Thought content, auditory hallucinations and paranoid delusions. Intellect poor because he does not know current events, does not know last four presidents. Orientation x2. He is oriented to person and place, not to time and situation. Speech is pressured, nonsensical. Thought process, disorganized and illogical. Thought content, auditory hallucinations and paranoid delusions. Perception is poor because of auditory hallucinations and paranoid delusions. Abstract reasoning is poor because he does not understand proverbs. He has concrete thinking. Insight is poor because he does not recognize psych disorder. Judgment is poor because he does not accept consequences for his action. As far as his short-term memory, he recalls after a 5-minute delay, so poor short-term memory. Long-term memory is intact based on knowledge of long-term events in his life such as high school that he went to. DIAGNOSES: 1. Paranoid schizophrenia with acute exacerbation. 2. Medical includes COPD, hypertension, leukocytosis. 3. Psychosocial stressors, financial. 4. Functional impairment is severe. PLAN: Treat him with a medication regimen of Risperdal 2 twice a day, Zoloft 25 mg a day, Xanax 0.25 mg 3 times a day, and transfer to [facility] or psychiatric services. Once he is medically cleared, Dr. Callum Peña for Internal Medicine and myself, Dr. Cameron Yadav for psychiatric services. Twenty minutes of cognitive behavioral therapy provided to identify his automatic negative thoughts and convert the negative thoughts to more positive thoughts to reduce depression, anxiety, and mood lability. Chart reviewed. Discussed with staff. Seen and assessed in his room. Cameron Yadav M.D. DR: SHIMON JOB#: [id number] CC:
--- NOTE | 2019-05-25 13:21 | NUR ---
P.T Note: P.T evaluation completed. Pt is alert, O x 4 and cooperative. Pt reports c/o 8/10 pain in the lower back however agreeable to participate in P.T evaluation. Based on P.T evaluation , patient is independent in all areas of ADL/functional mobilities and gait/locomotion. Current functional status does not warrant skilled P.T services at this time. Encouraged pt OOB activities VS bedrest during stay to prevent deconditioning during hospitalization. Pt agreed. DC P.T services . Thank you for this referral.
[2019-05-25] MEDS: Morphine Sulfate 2mg/ml Inj(IV/IM USE ONLY) IVP PRN (13:25)
--- NOTE | 2019-05-25 13:36 | NUR ---
SS note Intake @ [facility] will send out a clinician to evaluate patient this evening (wants to place patient on hold, even though he is voluntary).
--- NOTE | 2019-05-25 13:52 | Cardiac Electrophysiology PN ---
Assessment/Plan Assessment/Plan 1. Beta-pavithra overdose in the patient with history of active cocaine use. In the previous admission, kept the patient off of beta-pavithra in view of active cocaine use. The patient fortunately has not had severe bradycardia and heart rate actually remains in 70s and 80s and no hypotension. 2. History of coronary artery disease with prior stent placement. On Plavix 75 mg daily. 3. Hypertension. On lisinopril 40 mg daily. 4. Active cocaine use. 5. Psychosis. On Risperdal and Zoloft. Further evaluation by Psychiatry. DEAN RN Subjective Subjective In SR. No bradycardia or hypotension despite metoprolol. Tox screen positive for Cocaine. transfer to [facility] pending Objective Last 24 Hour Vital Signs Date Time Temp Pulse Resp B/P (MAP) Pulse Ox O2 Delivery O2 Flow Rate FiO2 05/25/19 12:00 98.2 83 20 136/86 (103) 95 05/25/19 09:00 Room Air 05/25/19 08:49 98.3 74 21 130/74 (92) 99 05/25/19 08:00 67 05/25/19 04:00 97.1 63 20 134/76 (95) 95 05/25/19 04:00 63 05/25/19 00:00 72 05/25/19 00:00 98.3 72 18 129/75 (93) 96 05/24/19 21:00 Room Air 05/24/19 20:00 97.2 83 18 133/90 (104) 94 05/24/19 20:00 83 05/24/19 16:00 97.5 78 18 118/71 (87) 97 05/24/19 16:00 74 Intake and Output 05/24/19 05/25/19 19:00 07:00 Intake Total 240 ml 1425 ml Output Total 1550 ml Balance -1310 ml 1425 ml Intake Oral 240 ml 600 ml IV Total 825 ml Output Urine Total 1550 ml # Voids 2 # Bowel Movements 1 2 Laboratory Tests Test 05/25/19 05:27 White Blood Count 12.2 K/UL (4.8-10.8) H Red Blood Count 4.34 M/UL (4.70-6.10) L Hemoglobin 13.4 G/DL (14.2-18.0) L Hematocrit 39.2 % (42.0-52.0) L Mean Corpuscular Volume 90 FL (80-99) Mean Corpuscular Hemoglobin 30.8 PG (27.0-31.0) Mean Corpuscular Hemoglobin Concent 34.2 G/DL (32.0-36.0) Red Cell Distribution Width 11.6 % (11.6-14.8) Platelet Count 263 K/UL (150-450) Mean Platelet Volume 6.2 FL (6.5-10.1) L Neutrophils (%) (Auto) 45.4 % (45.0-75.0) Lymphocytes (%) (Auto) 44.0 % (20.0-45.0) Monocytes (%) (Auto) 7.4 % (1.0-10.0) Eosinophils (%) (Auto) 2.5 % (0.0-3.0) Basophils (%) (Auto) 0.7 % (0.0-2.0) Sodium Level 140 MMOL/L (136-145) Potassium Level 3.9 MMOL/L (3.5-5.1) Chloride Level 108 MMOL/L (98-107) H Carbon Dioxide Level 22 MMOL/L (21-32) Anion Gap 10 mmol/L (5-15) Blood Urea Nitrogen 17 mg/dL (7-18) Creatinine 0.9 MG/DL (0.55-1.30) Estimat Glomerular Filtration Rate > 60 mL/min (>60) Glucose Level 101 MG/DL (74-106) Calcium Level 8.2 MG/DL (8.5-10.1) L Microbiology Date/Time Source Procedure Growth Status 05/23/19 10:06 Nasal Nares MRSA Culture - Final NO METHICILLIN RESISTANT STAPH AUREUS... Complete 05/24/19 11:35 Urine,Clean Catch Urine Culture - Preliminary NO GROWTH Resulted 05/23/19 10:06 Rectum - Final NO CARBAPENEM-RESISTANT ENTEROBACTERI... Complete 05/23/19 10:06 Rectum VRE Culture - Final NO VANCOMYCIN RESISTANT ENTEROCOCCUS ... Complete Objective HEAD AND NECK: No JVD or carotid bruits. LUNGS: Clear. CARDIOVASCULAR: Shows regular S1 and S2 with no gallop or murmur. ABDOMEN: Soft and nontender. EXTREMITIES: No pitting edema. Prabhakar Echevarria MD May 25, 2019 13:52
[2019-05-25 16:00] VITALS: BP 130/77
--- NOTE | 2019-05-25 16:21 | Infectious Diseases Prog Note ---
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 Suicidal attempt. Drug abuse. COPD. Hypertension. CAD. CLAUDY. Overdose on metoprolol. PLAN: Zithro # 1/ 5 Monitor CBC, BMP Monitor CXR Monitor Blood and Urine Cx Thank you Subjective Respiratory: Reports: dry cough Allergies: Coded Allergies: CODEINE (Verified Adverse Reaction, Intermediate, 10/29/15) Objective Vital Signs Last 24 Hour Vital Signs Date Time Temp Pulse Resp B/P (MAP) Pulse Ox O2 Delivery O2 Flow Rate FiO2 05/25/19 12:00 98.2 83 20 136/86 (103) 95 05/25/19 09:00 Room Air 05/25/19 08:49 98.3 74 21 130/74 (92) 99 05/25/19 08:00 67 05/25/19 04:00 97.1 63 20 134/76 (95) 95 05/25/19 04:00 63 05/25/19 00:00 72 05/25/19 00:00 98.3 72 18 129/75 (93) 96 05/24/19 21:00 Room Air 05/24/19 20:00 97.2 83 18 133/90 (104) 94 05/24/19 20:00 83 Height (Feet): 5 Height (Inches): 10.00 Weight (Pounds): 190 Respiratory/Chest: lungs clear Cardiovascular: regular rhythm Abdomen: no organomegaly Microbiology Date/Time Source Procedure Growth Status 05/23/19 10:06 Nasal Nares MRSA Culture - Final NO METHICILLIN RESISTANT STAPH AUREUS... Complete 05/24/19 11:35 Urine,Clean Catch Urine Culture - Preliminary NO GROWTH Resulted 05/23/19 10:06 Rectum - Final NO CARBAPENEM-RESISTANT ENTEROBACTERI... Complete 05/23/19 10:06 Rectum VRE Culture - Final NO VANCOMYCIN RESISTANT ENTEROCOCCUS ... Complete Laboratory Tests Test 05/25/19 05:27 White Blood Count 12.2 K/UL (4.8-10.8) H Red Blood Count 4.34 M/UL (4.70-6.10) L Hemoglobin 13.4 G/DL (14.2-18.0) L Hematocrit 39.2 % (42.0-52.0) L Mean Corpuscular Volume 90 FL (80-99) Mean Corpuscular Hemoglobin 30.8 PG (27.0-31.0) Mean Corpuscular Hemoglobin Concent 34.2 G/DL (32.0-36.0) Red Cell Distribution Width 11.6 % (11.6-14.8) Platelet Count 263 K/UL (150-450) Mean Platelet Volume 6.2 FL (6.5-10.1) L Neutrophils (%) (Auto) 45.4 % (45.0-75.0) Lymphocytes (%) (Auto) 44.0 % (20.0-45.0) Monocytes (%) (Auto) 7.4 % (1.0-10.0) Eosinophils (%) (Auto) 2.5 % (0.0-3.0) Basophils (%) (Auto) 0.7 % (0.0-2.0) Sodium Level 140 MMOL/L (136-145) Potassium Level 3.9 MMOL/L (3.5-5.1) Chloride Level 108 MMOL/L (98-107) H Carbon Dioxide Level 22 MMOL/L (21-32) Anion Gap 10 mmol/L (5-15) Blood Urea Nitrogen 17 mg/dL (7-18) Creatinine 0.9 MG/DL (0.55-1.30) Estimat Glomerular Filtration Rate > 60 mL/min (>60) Glucose Level 101 MG/DL (74-106) Calcium Level 8.2 MG/DL (8.5-10.1) L Current Medications Medications (Trade) Dose Ordered Sig/Mauricio Route PRN Reason Start Time Stop Time Status Last Admin Dose Admin Acetaminophen (Tylenol) 650 mg Q4H PRN ORAL fever 05/23/19 11:30 06/22/19 11:29 Alprazolam (Xanax) 0.25 mg THREE TIMES A DAY ORAL 05/24/19 11:00 05/31/19 10:59 05/25/19 14:13 Clopidogrel Bisulfate (Plavix) 75 mg DAILY ORAL 05/24/19 09:00 06/23/19 08:59 05/25/19 09:09 Dextrose (Dextrose 50%) 25 ml Q30MIN PRN IV Hypoglycemia 05/23/19 11:30 06/22/19 11:29 Dextrose (Dextrose 50%) 50 ml Q30MIN PRN IV Hypoglycemia 05/23/19 11:30 06/22/19 11:29 Lisinopril (Prinivil) 40 mg DAILY ORAL 05/24/19 09:00 06/23/19 08:59 Lorazepam (Ativan 2mg/ml 1ml) 0.5 mg Q4H PRN IV For Anxiety 05/23/19 11:30 05/30/19 11:29 Morphine Sulfate (Morphine Sulfate) 1 mg Q4H PRN IVP PAIN 4-10 05/23/19 11:30 05/30/19 11:29 05/25/19 13:25 Ondansetron HCl (Zofran) 4 mg Q6H PRN IVP Nausea & Vomiting 05/23/19 11:30 06/22/19 11:29 Pantoprazole (Protonix) 40 mg DAILY ORAL 05/24/19 14:15 06/23/19 14:14 05/25/19 09:08 Paroxetine HCl (Paxil) 20 mg DAILY ORAL 05/24/19 14:00 06/23/19 13:59 05/25/19 09:08 Polyethylene Glycol (Miralax) 17 gm HSPRN PRN ORAL Constipation 05/23/19 11:30 06/22/19 11:29 Risperidone (RisperDAL) 2 mg BID ORAL 05/23/19 18:00 06/22/19 17:59 05/25/19 09:08 Sodium Chloride 1,000 ml @ 75 mls/hr [id number] IV 05/23/19 14:30 06/22/19 14:29 05/25/19 14:13 Terazosin HCl (Hytrin) 5 mg BEDTIME ORAL 05/23/19 21:00 06/22/19 20:59 05/24/19 20:41 Zolpidem Tartrate (Ambien) 5 mg HSPRN PRN ORAL Insomnia 05/23/19 11:30 05/30/19 11:29 05/24/19 22:26 Gilson Cho MD May 25, 2019 16:21
--- NOTE | 2019-05-25 16:37 | NUR ---
NURSE NOTES: per [employer] worker [facility] will call us back today once they have a bed for available.
[2019-05-25] MEDS ORDERED: Azithromycin 500 MG in D5W 275 ML IV SCH (18:00)
--- NOTE | 2019-05-25 18:30 | NUR ---
NURSE NOTES: RN RECEIVED PT FROM MEREDITH PACHECO FROM TELE. PT IN STABLE CONDITION. SITTER AT BEDSIDE. BELONGINGS CHECKED AT BEDSIDE AND REVIEWED WITH PT. PT STATES ALL BELONGINGS ARE ACCOUNTED. PT WAS ORIENTED TO ROOM. EDUCATED ON PLAN FOR TRANSFER TO [facility] AFTER CLINICIAN INTERVIEWS PT. VERBALIZED UNDERSTANDING. CALL LIGHT WITHIN REACH. WILL CONTINUE TO MONITOR.
--- NOTE | 2019-05-25 18:50 | NUR ---
NURSE NOTES: Report given to Shaheen. pt transferred to [facility] in stable condition sitter is at bedside. pt off direct service professional no signs of cardiac or resp distress at this time. Bed in lowest position and locked. Call light within reach. Belonging sheet checked with pt. everything matches. Medical file and meds were brought with pt. Pt will be picked up by carmen crawford later on today. [address] Franco for DC order.
[2019-05-25] MEDS ORDERED: Zolpidem 5mg tab ORAL PRN (19:00)
[2019-05-25] MEDS ORDERED: LORazepam Inj 2mg/ml 1ml IV PRN (19:00)
[2019-05-25] MEDS ORDERED: Morphine Sulfate 2mg/ml Inj(IV/IM USE ONLY) IVP PRN (19:00)
[2019-05-25] MEDS ORDERED: Miralax 17gm pkt ORAL PRN (19:00)
--- NOTE | 2019-05-25 19:42 | NUR ---
HAND-OFF: Report given to Yecenia NOVA RN.
--- NOTE | 2019-05-25 19:59 | NUR ---
NURSE NOTES: Patient in bed, awake, alert and verbally responsive. Able to make needs known. No complaint of pain or discomfort noted. Abdomen is soft and non distended. IV site noted, iv fluid is infusing as ordered. Skin is warm and dry to touch. Respiration is even and unlabored. Call light is at bedside. will continue plan of care.
[2019-05-25 20:00] VITALS: BP 152/99
--- NOTE | 2019-05-25 22:00 | NUR ---
NURSE NOTES: Dr. Peña and Dr. Lopez was notified of transfer and aware.
[2019-05-25] MEDS ORDERED: XANAX0.25 MG ORAL (22:17)
[2019-05-25] MEDS ORDERED: PAXIL20 MG ORAL (22:18)
[2019-05-25] MEDS ORDERED: PROTONIX40 MG ORAL (22:18)
[2019-05-25] MEDS ORDERED: ZITHROMAX500 MG ORAL (22:21)
--- NOTE | 2019-05-25 23:20 | NUR ---
NURSE NOTES: Clinician Sukumar from [facility] visited patient, nurse was told to transfer patient tonight. Will notify
--- NOTE | 2019-05-25 23:21 | NUR ---
NURSE NOTES: Spoke to Burton saucedo [facility] for report. All belongings with patient, documents signed. Will call [facility] for transport.
[2019-05-25] MEDS ORDERED: 1/2 NS 1000ml IV ONE (23:50)
--- NOTE | 2019-05-26 00:02 | NUR ---
NURSE NOTES: Gave report to [facility], all belongings noted, signed paper work. No s/s of distress.
[2019-05-26] MEDS ORDERED: Lisinopril 20mg tab ORAL SCH (09:00)
[2019-05-26] MEDS ORDERED: ALPRAZolam 0.25mg tab ORAL SCH (09:00)
[2019-05-26] MEDS ORDERED: PARoxetine 20mg tab ORAL SCH (09:00)
[2019-05-26] MEDS ORDERED: Azithromycin 500 MG in D5W 275 ML IV SCH (18:00)
--- NOTE | 2019-05-27 12:23 | Discharge Summary ---
Discharge Summary Discharge Summary _ DATE OF ADMISSION: 05/23/2019 DATE OF DISCHARGE: 05/25/2019 DISCHARGED BY: Dr. Callum Peña CONSULTANTS: Dr. Gilson Yadav BRIEF HOSPITAL COURSE: Patient is a 59-year-old male, who lives at home, he had a suicidal attempt by ingesting approximately 15 tablets of metoprolol. The patient became lethargic. He was brought in via EMS. Patient denied hearing voices. Stated he tried to wrap a cord around his neck. He stated he was at another psychiatric facility recently. Patient denied any alcohol or drug use. Denied chest pain or shortness of breath. No other aggravating or relieving factors. Upon evaluation at the ED, vital signs were stable heart rate was slightly tachycardic at 102. Blood work showed WBC elevated to 16. Hemoglobin and hematocrit were stable. BUN was elevated to 42, creatinine 1.5. Acetaminophen level less than 2. Serum alcohol level less than 3. Salicylates 5.2. Urinalysis showed 2+ ketones, 2+ blood negative nitrite, +1 leukocyte esterase, 2-4 urine RBC, 0-2 urine WBC. Urine toxicology was positive for cocaine and marijuana. EKG was in normal sinus rhythm. Chest x-ray showed no acute disease. He was provided a sitter. In the presence of [employer] and sitter, patient attempted to wrap a cord around his neck. Patient was then restrained was placed on 5150 hold. Poison control was contacted. He was given IV. He was then admitted for overdose and suicidal ideation, acute kidney injury and cocaine abuse. He was admitted to telemetry. Continued with one-on-one sitter. He was given IV hydration. Pest Control Service Representative was consulted. Patient has cocaine use and took beta-blockers. Heart rate was monitored. He has history of coronary artery disease with prior stent placement. He was continued on Plavix and lisinopril. ID was consulted for evaluation of leukocytosis. There was no fever, no active signs of infection. He was initially observed off antibiotics. Psychiatric evaluation was done. Patient was diagnosed with paranoid schizophrenia with acute exacerbation. He was given Risperdal 2 mg twice a day , Paxil 20 mg 3 times a day. He was given cognitive behavioral therapy. Heart rate has been sinus on the monitor. He was started on azithromycin empirically for probable COPD exacerbation due to increased cough. He was transferred to medical floor. Patient was referred to psychiatric facility. He was eventually transferred to [facility]. FINAL DIAGNOSES: Drug overdose with suicide attempt Paranoid schizophrenia with acute exacerbation Leukocytosis, most likely reaction to stress Probable COPD exacerbation Acute kidney injury Drug abuse COPD Hypertension Overdose on metoprolol Coronary artery disease with prior stent DISPOSITION: Patient was transferred to [facility]. DISCHARGE MEDICATIONS: Refer to Discharge Medication List. I have been assigned to complete a discharge summary on this account, I was not involved with the patient's management.--MARCELLE Jack Jacqueline Robles NP May 27, 2019 12:23
--- NOTE | 2019-05-27 14:50 | Cardiology Report ---
APPROVED REPORT EKG Measurement Heart [id number] Normal sinus rhythm Normal ECG
== END 2019-05-25 23:51 | DRG 918 ==
LOC: EDBD 07:56 → EMR 08:50 → 2E 09:44 → EDBEDREQ 10:05 → 2E 14:22 → 4E 05-25 18:28
DX: T44.7X2A Poisoning by beta-adrenoreceptor antagonists, intentional self-harm, initial encounter (principal); N17.9 Acute kidney failure, unspecified; R45.851 Suicidal ideations; F20.0 Paranoid schizophrenia; J44.1 Chronic obstructive pulmonary disease with (acute) exacerbation; R53.83 Other fatigue; Y92.009 Unspecified place in unspecified non-institutional (private) residence as the place of occurrence of the external cause; F14.10 Cocaine abuse, uncomplicated; J44.9 Chronic obstructive pulmonary disease, unspecified; F29 Unspecified psychosis not due to a substance or known physiological condition; I10 Essential (primary) hypertension; I25.10 Atherosclerotic heart disease of native coronary artery without angina pectoris; Z95.5 Presence of coronary angioplasty implant and graft; Z88.6 Allergy status to analgesic agent; Z79.82 Long term (current) use of aspirin; Z79.02 Long term (current) use of antithrombotics/antiplatelets
CPT/HCPCS: 36415; 71045; 80048; 80053; 80061; 80307; 80329; 81003; 84439; 84443; 84484; 85025; 87040; 87081; 87086; 93005; 93306; 93970; 96361; 96374; 99291; J8499

== ENCOUNTER 2020-02-13 20:14 | Emergency (ER) | payer MEDICARE, MEDICAID ==
[~2020-02-13] VITALS: Ht 177.8 cm; Wt 90.7 kg
[~2020-02-13 20:14] MED LIST changes: +ATORVASTATIN CA40 MG ORAL; +CITALOPRAM HBR40 M1 ORAL; +HYDROXYZIN50 MG/25 M PO; +LISINOPRIL40 MG ORAL; +OMEPRAZOLE20 M2 ORAL; +PAXIL20 MG ORAL; +PROTONIX40 MG ORAL; +RISPERIDONE2 MG ORAL; +THORAZINE25 MG PO; +XANAX0.25 MG ORAL; +ZITHROMAX500 MG ORAL
--- NOTE | 2020-02-13 20:17 | NUR ---
ED Nurse Note: pt presnts to ED c/o vomiting, cough and dizziness x 3 days. pt reports being unable to take his meds because he has been vomiting, weak on his feet and lighteheaded when he gets up. pt's BP is 156/139, he appears diaphoretic but calm and cooperative. pt also reports a 10/10 frontal BRITO
--- NOTE | 2020-02-13 20:20 | NUR ---
ED Nurse Note: pt reports falling from getting up too fast and being dizzy. denies head trauma or LOC. pt also states he has been seeing blurred vision, SOB but SpO2 is 99%, accucheck 203
--- NOTE | 2020-02-13 20:22 | NUR ---
ED Nurse Note: pt being taken to CT, fall and aspiration precations are in place per ERMD orders. pt tolerated PO meds well
[2020-02-13] MEDS ORDERED: Meclizine 25mg tab ORAL ONE (20:30)
[2020-02-13] MEDS ORDERED: cloNIDine 0.2mg Tab ORAL ONE (20:30)
--- NOTE | 2020-02-13 20:31 | Emergency Room Report ---
History of Present Illness General Chief Complaint: Vomiting Source: Patient Present Illness HPI Is a 59-year-old male presents after increased vomiting for the past 3 days. Reports having increased dizziness as well as spinning sensation. He had been unable to take his blood pressure medications. Prior history of hypertension. He is unsure what his medications are. He had prior history of psychosis. Reports having some generalized discomfort.Prior history of coronary artery disease. Allergies: Coded Allergies: CODEINE (Verified Adverse Reaction, Intermediate, 10/29/15) COVID-19 Screening Contact w/high risk pt: No Recent Travel to affected area: No Experienced COVID-19 symptoms?: Yes COVID-19 symptoms experienced: Cough, Runny Nose COVID-19 Testing performed CLOTH GRADER: No Patient History Past Medical History: see triage record Reviewed Nursing Documentation: PMH: Agreed; PSxH: Agreed Nursing Documentation-PMH Hx Cardiac Problems: Yes - STENT Hx Hypertension: Yes Hx Cancer: No Hx Gastrointestinal Problems: No History Of Psychiatric Problem: Yes - PARANOID SCHIZ; DEPRESSION Hx Neurological Problems: Yes Hx Weakness: Yes Review of Systems All Other Systems: negative except mentioned in HPI Physical Exam Vital Signs Date Time Temp Pulse Resp B/P (MAP) Pulse Ox O2 Delivery O2 Flow Rate FiO2 02/13/20 20:06 98.8 110 18 194/120 (144) 96 Room Air Sp02 EP Interpretation: reviewed, normal General Appearance: normal inspection, well appearing, no apparent distress, alert, GCS 15 Head: atraumatic ENT: normal ENT inspection, hearing grossly normal, normal voice Neck: normal inspection, full range of motion, supple, no bony tend Respiratory: normal inspection, lungs clear, normal breath sounds, no respiratory distress, no retraction, no wheezing Cardiovascular #1: regular rate, rhythm, no edema Gastrointestinal: normal inspection, normal bowel sounds, non tender, soft, no guarding, no hernia Genitourinary: no CVA tenderness Musculoskeletal: normal inspection, back normal, normal range of motion Neurologic: alert, responsive, speech normal, normal inspection Psychiatric: normal inspection, judgement/insight normal, mood/affect normal Medical Decision Making Diagnostic Impression: Primary Impression: Cerebellar stroke ER Course Presented for altered mental status patient presented for diplopia and vertigo sensation. Differential diagnosis include was not limited to CVA, hypertensive crisis, encephalopathy, benign positional vertigo among others. Because of complexity of patient's case laboratory tests and imaging studies were ordered. Patient was noted to have some concerning signs and symptoms. He was noted to be markedly hypertensive. Patient was given hydralazine as well as meclizine EKG interpreted by me showed sinus tachycardia with a rate of [address] or T wave changes.Patient was discussed with Dr. Fry from [facility] who agreed except the patient for transfer. Patient be transferred for further work-up of acute CVA. At the time of transfer patient was awake alert oriented. He was noted to have some nausea as well as vertigo sensation. He did not appear to have any ataxia. Patient was noted to have markedly elevated blood pressure. Reportedly been off of his anticoagulation. He reports having onset of symptoms several days ago and reports having associated diplopia. CT imaging of the head showed significant Lesion in the cerebellum on the left side. Patient be transferred to higher level of care for further evaluation and treatment of possible CVA Last Vital Signs Date Time Temp Pulse Resp B/P (MAP) Pulse Ox O2 Delivery O2 Flow Rate FiO2 02/13/20 20:26 194/120 02/13/20 20:06 98.8 110 18 96 Room Air Status: unchanged Disposition: SHORT-TERM HOSP Condition: Stable Kurtis Garcia MD Feb 13, 2020 20:31
[2020-02-13 20:38] VITALS: BP 127/116
--- NOTE | 2020-02-13 20:50 | NUR ---
ED Nurse Note: pt returned from CT in stable condition, pt connected onto monitor car operator, second line started in L forearm
[2020-02-13 20:55] LABS: HEMATOCRIT 48.7 % (42.0-52.0); HEMOGLOBIN 15.9 G/DL (14.2-18.0); INR 1.1 (0.9-1.1); MEAN CORPUSCULAR VOLUME 91 FL (80-99); PLATELET COUNT 345 K/UL (150-450); RED BLOOD COUNT 5.38 M/UL (4.70-6.10); RED CELL DISTRIBUTION WIDTH 13.5 % (11.6-14.8); WHITE BLOOD COUNT 18.4 K/UL (4.8-10.8)
[2020-02-13 20:56] LABS: BASOPHILS % (AUTO) 0.6 % (0.0-2.0); LYMPHOCYTES % (AUTO) 17.9 % (20.0-45.0); MONOCYTES % (AUTO) 6.3 % (1.0-10.0); NEUTROPHILS % (AUTO) 75.1 % (45.0-75.0)
[2020-02-13 20:58] LABS: ANION GAP 13 mmol/L (5-15); BLOOD UREA NITROGEN 25 mg/dL (7-18); CALCIUM 9.4 MG/DL (8.5-10.1); CARBON DIOXIDE 24 MMOL/L (21-32); CHLORIDE 101 MMOL/L (98-107); CREATININE 1.4 MG/DL (0.55-1.30); POTASSIUM 3.6 MMOL/L (3.5-5.1); SODIUM 137 MMOL/L (136-145)
[2020-02-13 21:08] LABS: ALANINE AMINOTRANSFERASE 40 U/L (12-78); ALBUMIN 4.2 G/DL (3.4-5.0); ALKALINE PHOSPHATASE 104 U/L (46-116); ASPARTATE AMINO TRANSFERASE 38 U/L (15-37); BILIRUBIN,TOTAL 0.7 MG/DL (0.2-1.0); CHOLESTEROL 252 MG/DL (< 200); HDL CHOLESTEROL 34 MG/DL (40-60); TRIGLYCERIDES 364 MG/DL (30-150)
--- NOTE | 2020-02-13 21:25 | Diagnostic Imaging Report ---
EXAM: CT Head Without Intravenous Contrast CLINICAL HISTORY: DIZZY. Vomiting, weakness, and lightheadedness. Frontal headache. TECHNIQUE: Axial computed tomography images of the head/brain without intravenous contrast. CTDI is 53.4 mGy and DLP is 1014 mGy-cm. One or more of the following dose reduction techniques were used: automated exposure control, adjustment of the mA and/or kV according to patient size, use of iterative reconstruction technique. COMPARISON: No relevant prior studies available. FINDINGS: Brain: There is a 2.8 x 4.1 x 3.3 cm area of decreased density along the medial aspect of the cerebellum on the left which is likely related to a subacute infarct. No evidence for acute intracranial hemorrhage. Probable mild small vessel ischemic changes. Midline shift: No evidence for significant midline shift. Ventricles: Unremarkable. Bones/joints: Probable old fracture deformity of the anterior wall of the left maxillary sinus which is fully imaged. Soft tissues: Unremarkable. Sinuses: Focal areas of mucosal thickening in the paranasal sinuses. Mastoid air cells: Unremarkable as visualized. No mastoid effusion. IMPRESSION: There is a 2.8 x 4.1 x 3.3 cm area of decreased density along the medial aspect of the cerebellum on the left which is likely related to a subacute infarct. <MYCVCSECTION> Communications: 02/13/20 21:26 Call Doctor Regarding Above results, called Dr. Garcia on 02/12 21:26 (-07:00)
[2020-02-13] MEDS ORDERED: Aspirin Baby 81mg ORAL ONE (21:30)
[2020-02-13 21:59] VITALS: BP 169/104
--- NOTE | 2020-02-13 22:00 | NUR ---
ED Nurse Note: pt remains in bed, appears to be using his cell phone. no acute distress is noted at this time, pt remains hypertensive on site monitor. lights dimmed for comfort, pt head of bed raised, fall and aspiration precautions are in place. will cont to monitor pt and prepare for trasnfer
[2020-02-13 23:18] VITALS: BP 143/96
--- NOTE | 2020-02-13 23:30 | NUR ---
ED Nurse Note: report given to MEREDITH Snyder at [facility]
--- NOTE | 2020-02-13 23:31 | NUR ---
ED Nurse Note: [facility] here to transport pt
[2020-02-13 23:43] VITALS: BP 143/96
== END 2020-02-13 23:44 | disposition short-term general hospital (02) ==
LOC: EDBD 20:14 → EMR 21:30
DX: I63.9 Cerebral infarction, unspecified (principal); I10 Essential (primary) hypertension; Z95.5 Presence of coronary angioplasty implant and graft; F32.9 Major depressive disorder, single episode, unspecified; F25.9 Schizoaffective disorder, unspecified; Z88.6 Allergy status to analgesic agent; R05 Cough
CPT/HCPCS: 36415; 70450; 80053; 80061; 83690; 85025; 85610; 85730; 93005; 99285